=== PATIENT | female | born 1935 | race Caucasian/White ===

== ENCOUNTER 2025-01-15 13:21 | Inpatient (IN) ==
[2025-01-15 13:38] VITALS: BMI 25.2
--- NOTE | 2025-01-15 14:07 | EKG ---
Test Reason : sob Blood Pressure : */* mmHG Vent. Rate : 88 BPM Atrial Rate : 88 BPM P-R Int : 130 ms QRS Dur : 90 ms QT Int : 368 ms P-R-T Axes : 33 -31 49 degrees QTc Int : 445 ms Normal sinus rhythm Left axis deviation Abnormal ECG When compared with ECG of 20-DEC-2024 09:00, QRS axis shifted left Confirmed by Prosper Mayorga MD ([id number]) on 01/16/2025 7:18:12 AM Referred By: Confirmed By: Prosper Mayorga MD
[2025-01-15 14:09] LABS: MEAN PLATELET VOLUME 7.2 fL (7.4-11.0)
[2025-01-15 14:13] LABS: RED CELL DISTRIBUTION WIDTH 17.2 % (11.6-16.5)
--- NOTE | 2025-01-15 14:14 | DR.SOBA ---
HPI Time Seen Time Seen by Provider: 01/15/25 14:12 Primary Care Physician Primary Care Physician: Marilynn Montemayor NP Complaints Chief Complaint Doctors Comments: Patient complain of shortness of breath for about 2 days.He did have a arterioplasty done on her right leg on November. Chief Complaint:: Paient daughter states that patient O2 sat was in the 60s, patient had shortness of breath, confusion and weakness x2 days. Daughter states that she only checked patient O2 due to shorntess of breath, she states that the patient refused to come to the ER until today. COVID-19 Coronavirus risk:travel/contact w/high risk person: No Has patient experienced Coronavirus symptoms: No Source History Provided: Patient and Family Member Mode of Arrival Mode of Arrival: Wheelchair Timing Onset of Chief Complaint: 01/13/25 PMH PMH Past Medical History: Yes Past Medical History: Anxiety, Diabetes, Dyslipidemia, Hypertension and Hypothyroidism Past Medical History Comment: arrhythmia Past Surgical History: Yes Surgical History: Cholecystectomy and Joint Replacement Past Surgical History Comment: left hip replacement, artery in legs Family History History of Family Medical Conditions: Yes Family Medical History: Diabetes Mellitus, Cancer and Hypertension Social History Type of Tobacco Use: None Alcohol Use: None Do you use any recreational Drugs:: No Lives With: Spouse Lives Where: Home Travel Risk Coronavirus risk:travel/contact w/high risk person: No Has patient experienced Coronavirus symptoms: No Infectious screening Have you traveled outside the country in the last 6 months?: No Isolation: Standard ROS Review of Systems Constitutional: Other (shortness of breath) Eyes: No Symptoms Reported ENTM: No Symptoms Reported Respiratoy: Short of Breath Cardiovascular: No Symptoms Reported Gastrointestinal/Abdominal: No Symptoms Reported Genitourinary: No Symptoms Reported Neurological: No Symptoms Reported Musculoskeletal: No Symptoms Reported Integumentary: No Symptoms Reported Hematologic/Lymphatic: No Symptoms Reported Endocrine: No Symptoms Reported Psychiatric: No Symptoms Reported All Other Systems: Reviewed and Negative PE Vital Signs Vitals: Vital Signs Temperature 98.3 F Pulse Rate 83 Pulse Rate 89 Pulse Rate 82 Pulse Rate 82 Pulse Rate 80 Pulse Rate 80 Pulse Rate 80 Pulse Rate 81 Pulse Rate 82 Pulse Rate 82 Pulse Rate 81 Pulse Rate 80 Pulse Rate 81 Pulse Rate 81 Pulse Rate 82 Pulse Rate 81 Pulse Rate 86 Pulse Rate 85 Pulse Rate 87 Pulse Rate 89 Pulse Rate 91 Pulse Rate 88 Pulse Rate 95 Pulse Rate 100 Respiratory Rate 20 Blood Pressure 140/65 Blood Pressure 142/86 Blood Pressure 153/65 Blood Pressure 165/73 Blood Pressure 163/70 Blood Pressure 133/67 Blood Pressure 156/71 Blood Pressure 156/71 Blood Pressure 133/63 Blood Pressure 133/63 Blood Pressure 139/62 Blood Pressure 139/62 Blood Pressure 162/70 O2 Sat by Pulse Oximetry 98 O2 Sat by Pulse Oximetry 94 O2 Sat by Pulse Oximetry 95 O2 Sat by Pulse Oximetry 97 O2 Sat by Pulse Oximetry 100 O2 Sat by Pulse Oximetry 98 O2 Sat by Pulse Oximetry 100 O2 Sat by Pulse Oximetry 100 O2 Sat by Pulse Oximetry 99 O2 Sat by Pulse Oximetry 100 O2 Sat by Pulse Oximetry 100 O2 Sat by Pulse Oximetry 99 O2 Sat by Pulse Oximetry 96 O2 Sat by Pulse Oximetry 90 O2 Sat by Pulse Oximetry 92 O2 Sat by Pulse Oximetry 92 O2 Sat by Pulse Oximetry 87 O2 Sat by Pulse Oximetry 91 O2 Sat by Pulse Oximetry 91 O2 Sat by Pulse Oximetry 93 O2 Sat by Pulse Oximetry 93 O2 Sat by Pulse Oximetry 94 O2 Sat by Pulse Oximetry 92 O2 Sat by Pulse Oximetry 75 General Limitations: Physical Limitation (due to hypoxia) General Appearance: Alert and In Distress (moderate distress) Head Head Exam: Normal Inspection, Atraumatic and Normocephalic Eyes Eye exam: Normal Appearance, PERRL and EOMI ENT ENT Exam: Normal Exam and Normal Oropharynx Neck Neck Exam: Normal Inspection, Full ROM and Trachea Midline Chest Chest Inspection: Normal Inspection and Symmetric Chest Wall Rise Respiratory Respiratory Exam: Normal Lung Sounds Bilat Respiratory Exam: Bilateral: Clear to Auscultation Cardiovascular Cardiovascular Exam: Regular Rate Abdominal Exam Abdominal Exam: Normal Inspection Extremities Extremities Exam: Normal Inspection Back Back Exam: Normal Inspection Neurologic Neurological Exam: Alert, Oriented X3 and CN II-XII Intact Psychiatric Psychiatric Exam: Normal Affect Skin Skin Exam: Warm, Dry and Intact MDM Differential Diagnosis Differential Diagnosis: Pneumonia, Pneumothorax, Pulmonary embolism, Respiratory Insufficiency and URI COURSE Treatment Treatment: After patient was patient placed on oxygen she was relatively stable did okay not complaining of shortness of breath we did do the workup for PE pneumonia I we did do a D-dimer which was2.38 and we did a CTA of the chest that was negative for PE but it did show bilateral ground glass opacities. We did a chest x-ray that showed bilateral ground glass opacities today diagnosed as pneumonia.Patient did not have an elevated white count is a slightly elevated 10.3 the COVID respiratory panel was negative her BNP was 128 troponin was 10.1With this finding until bilateral opacities and hypoxia deemed that service patient to be admitted for pneumonia. This patient was given 1 g of Rocephin IV in the emergency department and was maintained on oxygen at 3 L/min to maintain O2 sat of 98%.This patient was discussed with Dr. Ferrer at 1755 and he is septic patient for admission.The patient family was told of the intent to admit and was agreeable to the admission. [facility] Labs Reviewed Laboratory Results Reviewed?: Yes 01/15/25 13:35 01/15/25 13:35 Laboratory: WBC 10.3 X10^3/uL (3.6-10.0) H 01/15/25 13:35 RBC 5.24 X10^6/uL (3.5-5.4) 01/15/25 13:35 Hgb 13.7 g/dL (12.0-16.0) 01/15/25 13:35 Hct 41.6 % (36.0-47.0) 01/15/25 13:35 MCV 79.4 fL (80.0-100.0) L 01/15/25 13:35 MCH 26.2 pg (27.0-34.0) L 01/15/25 13:35 MCHC 33.0 g/dL (33.0-35.0) 01/15/25 13:35 RDW 17.2 % (11.6-16.5) H 01/15/25 13:35 Plt Count 380 X10^3/uL (150.0-450.0) 01/15/25 13:35 MPV 7.2 fL (7.4-11.0) L 01/15/25 13:35 Neut % (Auto) 81.9 % (42.0-75.0) H 01/15/25 13:35 Lymph % (Auto) 10.2 % (21.0-51.0) L 01/15/25 13:35 [place] % (Auto) 6.2 % (0.0-13.0) 01/15/25 13:35 Eos % (Auto) 1.0 % (0.9-2.9) 01/15/25 13:35 Baso % (Auto) 0.7 % (0.2-1.0) 01/15/25 13:35 Neut # (Auto) 8.4 x10^3/uL (2.2-4.8) H 01/15/25 13:35 Lymph # (Auto) 1.0 X10^3/uL (1.3-2.9) L 01/15/25 13:35 [place] # (Auto) 0.6 x10^3/uL (0.3-0.8) 01/15/25 13:35 Eos # (Auto) 0.1 x10^3/uL (0.0-0.2) 01/15/25 13:35 Baso # (Auto) 0.1 X10^3/uL (0.0-0.1) 01/15/25 13:35 Absolute Nucleated RBC 0.7 /100WBC 01/15/25 13:35 D-Dimer 2.38 ug/ml (0.0-0.57) H 01/15/25 13:35 Sodium 139 mmol/L (136-145) 01/15/25 13:35 Corrected Sodium 139 mmol/L (136-145) 01/15/25 13:35 Potassium 3.8 mmol/L (3.5-5.1) 01/15/25 13:35 Chloride 100 mmol/L (98-107) 01/15/25 13:35 Carbon Dioxide 28.7 mmol/L (21-32) 01/15/25 13:35 BUN 23 mg/dL (7-18) H 01/15/25 13:35 Creatinine 0.89 mg/dL (0.55-1.02) 01/15/25 13:35 Est GFR (MDRD) Af Amer > 60 (>60) 01/15/25 13:35 Est GFR (MDRD) Non-Af > 60 (>60) 01/15/25 13:35 Glucose 113 mg/dL (65-99) H 01/15/25 13:35 Lactic Acid 0.9 mmol/L (0.4-2.0) 01/15/25 16:00 Calcium 11.6 mg/dL (8.5-10.1) H 01/15/25 13:35 Corrected Calcium 12.6 mg/dL (8.5-10.1) H 01/15/25 13:35 Total Bilirubin 0.90 mg/dL (0.2-1.0) 01/15/25 13:35 AST 42 Units/L (15-37) H 01/15/25 13:35 ALT 24 Units/L (12-78) 01/15/25 13:35 Alkaline Phosphatase 113 Units/L (46-116) 01/15/25 13:35 Creatine Kinase 27 Units/L (26-192) 01/15/25 13:35 Troponin I High Sens 10.1 ng/L (4.0-60.0) 01/15/25 13:35 B-Natriuretic Peptide 128 pg/mL (0-79) H 01/15/25 13:35 Total Protein 8.0 g/dL (6.4-8.2) 01/15/25 13:35 Albumin 2.7 g/dL (3.4-5.0) L 01/15/25 13:35 Globulin 5.3 g/dL (2.5-4.5) H 01/15/25 13:35 Albumin/Globulin Ratio 0.5 Ratio (1.1-2.1) L 01/15/25 13:35 SARS-CoV-2 (PCR) Negative (NEGATIVE) 01/15/25 13:46 Influenza Type A (PCR) Negative (NEGATIVE) 01/15/25 13:46 Influenza Type B (PCR) Negative (NEGATIVE) 01/15/25 13:46 RSV (PCR) Negative (NEGATIVE) 01/15/25 13:46 Opioid Opioid Risk Tool Age (Bobby box if 16-45): No History of Preadolescent Sexual Abuse: No Total: 0 Total Score Risk Category: Low Risk Copyright: uT predicting aberrant behaviors Discharge Plan Diagnosis Discharge Problem: Pneumonia, Hypoxia Discharge Plan Patient Disposition: 09 ADMITTED INPATIENT Condition: Stable Orders to Discharge Patient Discharge Orders: Transfer (Routine); Ordered 01/15/25 Ordered By: Zain Cole
[2025-01-15 14:20] LABS: COR CA(FOR HYPOALB) 12.6 mg/dL (8.5-10.1); COR NA(FOR HYPERGLY) 139 mmol/L (136-145); CREATININE 0.89 mg/dL (0.55-1.02); eGFR NON BLACK RACES > 60 (>60)
--- NOTE | 2025-01-15 15:31 | CT ---
EXAM: CTA, CHEST HISTORY: Shortness of breath, elevated d-dimer, sob, low 02; sob COMPARISON: Frontal chest radiograph same day 2:01 p[address] TECHNIQUE: CT angiography of the chest with intravenous contrast. Three-dimensional reconstructions and/or MIPS images were produced and reviewed. FINDINGS: Bolus timing is adequate. Negative for pulmonary embolus. Mediastinal lymphadenopathy is present. No pericardial effusion. There is a large hiatal hernia present. Limited visualization of the upper abdomen demonstrates clips from prior cholecystectomy. Adreniform fullness on the left is nonspecific and could be due to adenomatous change. Atrophy of the pancreas. No acute upper abdominal process. Lung windows demonstrate severe bilateral ground-glass airspace opacities with underlying bronchiectasis present bilaterally. No suspicious bony lesion. IMPRESSION: Negative for pulmonary embolus. Severe bilateral ground-glass airspace opacities are superimposed upon chronic appearing underlying interstitial lung disease. Pneumonia, pulmonary edema, pneumonitis would be differential considerations. All CT scans at this facility use dose modulation, iterative reconstruction, and/or weight based dosing when appropriate to reduce radiation dose to as low as reasonably achievable. THIS IS AN ELECTRONICALLY VERIFIED FINAL REPORT 01/15/2025 3:28 PM - Electronically signed by Kai Ahuja MD
--- NOTE | 2025-01-15 15:49 | RAD ---
EXAM: CHEST, 1 VIEW HISTORY: SOB; COMPARISON: 12/20/2024 r.br.[email or web address] stable. Scattered bilateral airspace opacities. No pneumothorax or effusion. No acute osseous abnormality. IMPRESSION: Bilateral airspace opacities concerning for pneumonia. Recommend follow-up to resolution. THIS IS AN ELECTRONICALLY VERIFIED FINAL REPORT 01/15/2025 3:46 PM - Electronically signed by Zechariah Liang MD
[2025-01-15] MEDS: ROCEPHIN VIAL 1 GRAM IVP ONE (18:02)
[2025-01-15] MEDS: ROCEPHIN VIAL 1 GRAM 1 G in NS 100 ML IV 100 ML IV SCH (18:20)
[2025-01-15] MEDS: PULMICORT NEB TX 0.5 MG NEB SCH (20:45)
[2025-01-15] MEDS ORDERED: DUONEB 0.5 MG/3 MG (3 mL) NEB SCH (20:45)
[2025-01-15] MEDS: DUONEB 0.5 MG/3 MG (3 mL) NEB SCH (20:45)
[2025-01-15] MEDS: TYLENOL 325 MG TAB PO PRN (22:11)
[2025-01-15] MEDS: XARELTO PO SCH (22:12)
[2025-01-16 05:52] LABS: MEAN PLATELET VOLUME 7.0 fL (7.4-11.0); RED CELL DISTRIBUTION WIDTH 17.6 % (11.6-16.5)
[2025-01-16 06:13] LABS: COR CA(FOR HYPOALB) 12.6 mg/dL (8.5-10.1); CREATININE 0.91 mg/dL (0.55-1.02); eGFR NON BLACK RACES > 60 (>60)
[2025-01-16] MEDS: CONSULT PHARMACY - POTASSIUM & MAGNESIUM XX SCH (07:32)
[2025-01-16] MEDS: OMNIPAQUE 350 mg/mL 100 mL BTL 100 ML ONE (07:32)
--- NOTE | 2025-01-16 08:25 | DR.H&P ---
H&P History & Physical for Day of: H&P Date: 01/15/25 Chief Complaint Chief Complaint: sob History of Present Illness History of Present Illness: Patient daughter states that patient O2 sat was in the 60s, patient had shortness of breath, confusion and weakness x2 days. Daughter states that she only checked patient O2 due to shortness of breath, she states that the patient refused to come to the ER until today Past Medical History Past Medical History: Anxiety, Diabetes, Dyslipidemia, Hypertension and Hypothyroidism Past Surgical History Surgical History: Cholecystectomy and Joint Replacement Family History Family Medical History: Diabetes Mellitus, Cancer and Hypertension Social History Does patient currently use any type of tobacco product: No Have you used tobacco products in the last 12 months: No Type of Tobacco Use: None Does any household member use tobacco: No Alcohol Use: None Drug Use: None Medications Home Medications: Home Medications Medication Instructions Recorded Confirmed Type triamterene 37.5 1 cap PO DAILY 06/12/1512/27 History mg-hydrochlorothiazide 25 mg capsule dapagliflozin propanediol 10 mg 10 mg PO QDAY 01/26/24 01/15/25 History tablet (Farxiga) levothyroxine 88 mcg tablet 88 mcg PO QDAY 01/26/24 History rosuvastatin 10 mg tablet 10 mg PO QDAY 01/26/2401/15 History aspirin 81 mg capsule 81 mg PO QDAY 01/15/2501/15 History cholecalciferol (vitamin D3) 125 125 mcg PO QDAY 01/1501/15/25 History mcg (5,000 unit) tablet (Vitamin D3) insulin degludec 100 unit/mL 10 unit subcut QDAY 01/1501/15/25 History subcutaneous solution (Tresiba U-100 Insulin) multivitamin 1 tab PO QAM 01/15/25 History omeprazole 20 mg capsule,delayed 20 mg PO QDAY 5 01/15/25 History release rivaroxaban 2.5 mg tablet 2.5 mg PO BID 01/15/2501/15 History tramadol 50 mg tablet 25 - 50 mg PO Q8-10H PRN 01/15/25 History Allergies Allergies Allergy/AdvReac Type Severity Reaction Status Date / Time Sulfa (Sulfonamide AdvReac Verified 01/15/25 13:38 Antibiotics) (SULFA) Labs 01/16/25 05:26 01/16/25 05:26 Labs: Laboratory WBC 7.9 X10^3/uL (3.6-10.0) 01/16/25 05:26 RBC 4.66 X10^6/uL (3.5-5.4) 01/16/25 05:26 Hgb 12.2 g/dL (12.0-16.0) 01/16/25 05:26 Hct 36.9 % (36.0-47.0) 01/16/25 05:26 MCV 79.2 fL (80.0-100.0) L 01/16/25 05:26 MCH 26.2 pg (27.0-34.0) L 01/16/25 05:26 MCHC 33.1 g/dL (33.0-35.0) 01/16/25 05:26 RDW 17.6 % (11.6-16.5) H 01/16/25 05:26 Plt Count 322 X10^3/uL (150.0-450.0) 01/16/25 05:26 MPV 7.0 fL (7.4-11.0) L 01/16/25 05:26 Neut % (Auto) 79.5 % (42.0-75.0) H 01/16/25 05:26 Lymph % (Auto) 9.2 % (21.0-51.0) L 01/16/25 05:26 [place] % (Auto) 8.6 % (0.0-13.0) 01/16/25 05:26 Eos % (Auto) 2.3 % (0.9-2.9) 01/16/25 05:26 Baso % (Auto) 0.4 % (0.2-1.0) 01/16/25 05:26 Neut # (Auto) 6.2 x10^3/uL (2.2-4.8) H 01/16/25 05:26 Lymph # (Auto) 0.7 X10^3/uL (1.3-2.9) L 01/16/25 05:26 [place] # (Auto) 0.7 x10^3/uL (0.3-0.8) 01/16/25 05:26 Eos # (Auto) 0.2 x10^3/uL (0.0-0.2) 01/16/25 05:26 Baso # (Auto) 0.0 X10^3/uL (0.0-0.1) 01/16/25 05:26 Absolute Nucleated RBC 0.2 /100WBC 01/16/25 05:26 D-Dimer 2.38 ug/ml (0.0-0.57) H 01/15/25 13:35 Sodium 139 mmol/L (136-145) 01/16/25 05:26 Corrected Sodium TNP 01/16/25 05:26 Potassium 3.6 mmol/L (3.5-5.1) 01/16/25 05:26 Chloride 101 mmol/L (98-107) 01/16/25 05:26 Carbon Dioxide 30.4 mmol/L (21-32) 01/16/25 05:26 BUN 26 mg/dL (7-18) H 01/16/25 05:26 Creatinine 0.91 mg/dL (0.55-1.02) 01/16/25 05:26 Est GFR (MDRD) Af Amer > 60 (>60) 01/16/25 05:26 Est GFR (MDRD) Non-Af > 60 (>60) 01/16/25 05:26 Glucose 106 mg/dL (65-99) H 01/16/25 05:26 POC Glucose (mg/dL) 118 mg/dL (65-99) H 01/15/25 20:41 Lactic Acid 0.9 mmol/L (0.4-2.0) 01/15/25 16:00 Calcium 11.2 mg/dL (8.5-10.1) H 01/16/25 05:26 Corrected Calcium 12.6 mg/dL (8.5-10.1) H 01/16/25 05:26 Magnesium 1.6 mg/dL (2.0-2.9) L 01/15/25 13:35 Total Bilirubin 0.60 mg/dL (0.2-1.0) 01/16/25 05:26 AST 30 Units/L (15-37) 01/16/25 05:26 ALT 21 Units/L (12-78) 01/16/25 05:26 Alkaline Phosphatase 93 Units/L (46-116) 01/16/25 05:26 Creatine Kinase 27 Units/L (26-192) 01/15/25 13:35 Troponin I High Sens 10.1 ng/L (4.0-60.0) 01/15/25 13:35 B-Natriuretic Peptide 128 pg/mL (0-79) H 01/15/25 13:35 Total Protein 6.9 g/dL (6.4-8.2) 01/16/25 05:26 Albumin 2.2 g/dL (3.4-5.0) L 01/16/25 05:26 Globulin 4.7 g/dL (2.5-4.5) H 01/16/25 05:26 Albumin/Globulin Ratio 0.5 Ratio (1.1-2.1) L 01/16/25 05:26 SARS-CoV-2 (PCR) Negative (NEGATIVE) 01/15/25 13:46 Influenza Type A (PCR) Negative (NEGATIVE) 01/15/25 13:46 Influenza Type B (PCR) Negative (NEGATIVE) 01/15/25 13:46 RSV (PCR) Negative (NEGATIVE) 01/15/25 13:46 Review of Systems Constitutional: Weakness Eyes: No Symptoms Reported ENT: No Symptoms Reported Respiratory: Shortness of Breath Cardiovascular: No Symptoms Reported Gastrointestinal: No Symptoms Reported Genitourinary: No Symptoms Reported Musculoskeletal: No Symptoms Reported Skin: No Symptoms Reported Neurological: Weakness Oriented: Normal Eyes: Normal Ear: Normal Nose: Normal Throat: Dry Respiratory: Diminished Throughout Cardiovascular: Normal Auscultation: Bowel Sounds: Normal Palpation: Normal Skin: Decreased [place] Musculoskeletal: Motor Deficit Psychiatric: Anxiety Mood Description: Anxious Speech Pattern: Clear and Appropriate Assessment/Plan (1) Hypoxia: Status: Acute Plan: admit, resp therapy supplemenal o2 cta negative for PE, obtained on admission\ iv atbx, bp and cardiac monitoring (2) Pneumonia: Status: Acute
[2025-01-16] MEDS ORDERED: PATIENT'S HOME MEDICATION (Multivitamin Tablet) PO SCH (09:00)
[2025-01-16] MEDS ORDERED: PATIENT'S HOME MEDICATION (Dapagliflozin Propanediol [Farxiga] 10 mg tablet) PO SCH (09:00)
[2025-01-16] MEDS ORDERED: PATIENT'S HOME MEDICATION (Aspirin 81 mg Capsule) PO SCH (09:00)
[2025-01-16] MEDS: VITAMIN D3 125 mcg (5,000 UNITS) PO SCH (09:19)
[2025-01-16] MEDS: ASPIRIN EC 81 MG PO SCH (09:19)
[2025-01-16] MEDS: CRESTOR TAB 10 MG PO SCH (09:19)
[2025-01-16] MEDS: TAB-A-VITE PO SCH (09:20)
[2025-01-16] MEDS: MAG-OX TAB PO SCH (09:20)
[2025-01-16] MEDS: ZESTRIL TAB 5 MG PO SCH (09:20)
[2025-01-16] MEDS: K-DUR TAB 20 MEQ PO SCH (09:20)
[2025-01-16] MEDS: TRESIBA U-100 INSULIN SC SCH (09:28)
[2025-01-16] MEDS: TRIAMTERENE HYDROCHLOROTHIAZID PO SCH (09:59)
[2025-01-16] MEDS: MAXZIDE 37.5/25 MG PO SCH (10:08)
[2025-01-16] MEDS: FARXIGA PO SCH (10:09)
[2025-01-16] MEDS: NS 250 ML IV 250 ML IV ONE (10:09)
[2025-01-16] MEDS: ZITHROMAX INJ 500 MG VIAL 500 MG in NS 250 ML IV 250 ML IV SCH (10:09)
--- NOTE | 2025-01-16 10:13 | PCM.PROG ---
Progress Note Progress Note for Day of Date of Exam: 01/16/25 Subjective Subjective: Patient seen at bedside, no acute events overnight. She is feeling better today. She is admitted for pneumonia. She remains on 2L NC. She reports some cough, poor appetite. She is on IV Rocephin. AIT pending. Labs/imaging reviewed: -WBC 7.9 Hgb 12.2 K 3.6 Cr 0.91 Corrected Ca 12.6 -CTA reviewed Plan: Wean O2 as tolerated. Repeat CXR. Continue bronchodilators and IS. Continue IV Rocephin, add azithromycin. Follow AIT results. Continue home medications. Add Ensure. Replace electrolytes as per protocol. PT/OT as tolerated. Family member states patient has had chronic hypercalcemia. Monitor AM labs/imaging. Past Medical Family Social History Allergies: Allergies Sulfa (Sulfonamide Antibiotics) (SULFA) Adverse Reaction (Verified 01/15/25 13:38) "itching" Vital Signs and I&O's Vital Signs: Vital Signs Temperature 97.9 F Pulse Rate [Left Radial] 77 Respiratory Rate 18 Blood Pressure [Right Arm] 159/75 O2 Sat by Pulse Oximetry 93 O2 Sat by Pulse Oximetry 94 Intake and Output: Intake & Output 01/13/25 01/14/25 01/15/25 01/16/25 23:59 23:59 23:59 23:59 Intake Total Balance Physical Exam Oriented: Normal Eyes: Normal Ear: Normal Nose: Normal Throat: Normal Respiratory: Generalized, Rales and Rhonchi Cardiovascular: Normal Auscultation: Bowel Sounds: Normal Palpation: Normal Skin: Decreased [place] Musculoskeletal: Motor Deficit Psychiatric: Normal Mood Description: Calm Affect: Normal Speech Pattern: Clear and Appropriate Laboratory and Diagnostics 01/16/25 05:26 01/16/25 05:26 Labs: Laboratory WBC 7.9 X10^3/uL (3.6-10.0) 01/16/25 05: RBC 4.66 X10^6/uL (3.5-5.4) 01/16/25 05:26 Hgb 12.2 g/dL (12.0-16.0) 01/16/25 05:26 Hct 36.9 % (36.0-47.0) 01/16/25 05:26 MCV 79.2 fL (80.0-100.0) L 01/16/25 05:26 MCH 26.2 pg (27.0-34.0) L 01/16/25 05:26 MCHC 33.1 g/dL (33.0-35.0) 01/16/25 05:26 RDW 17.6 % (11.6-16.5) H 01/16/25 05:26 Plt Count 322 X10^3/uL (150.0-450.0) 01/16/25 05:26 MPV 7.0 fL (7.4-11.0) L 01/16/25 05:26 Neut % (Auto) 79.5 % (42.0-75.0) H 01/16/25 05:26 Lymph % (Auto) 9.2 % (21.0-51.0) L 01/16/25 05:26 [place] % (Auto) 8.6 % (0.0-13.0) 01/16/25 05:26 Eos % (Auto) 2.3 % (0.9-2.9) 01/16/25 05:26 Baso % (Auto) 0.4 % (0.2-1.0) 01/16/25 05:26 Neut # (Auto) 6.2 x10^3/uL (2.2-4.8) H 01/16/25 05:26 Lymph # (Auto) 0.7 X10^3/uL (1.3-2.9) L 01/16/25 05:26 [place] # (Auto) 0.7 x10^3/uL (0.3-0.8) 01/16/25 05:26 Eos # (Auto) 0.2 x10^3/uL (0.0-0.2) 01/16/25 05:26 Baso # (Auto) 0.0 X10^3/uL (0.0-0.1) 01/16/25 05:26 Absolute Nucleated RBC 0.2 /100WBC 01/16/25 05:26 D-Dimer 2.38 ug/ml (0.0-0.57) H 01/15/25 13:35 Sodium 139 mmol/L (136-145) 01/16/25 05:26 Corrected Sodium TNP 01/16/25 05:26 Potassium 3.6 mmol/L (3.5-5.1) 01/16/25 05:26 Chloride 101 mmol/L (98-107) 01/16/25 05:26 Carbon Dioxide 30.4 mmol/L (21-32) 01/16/25 05:26 BUN 26 mg/dL (7-18) H 01/16/25 05:26 Creatinine 0.91 mg/dL (0.55-1.02) 01/16/25 05:26 Est GFR (MDRD) Af Amer > 60 (>60) 01/16/25 05:26 Est GFR (MDRD) Non-Af > 60 (>60) 01/16/25 05:26 Glucose 106 mg/dL (65-99) H 01/16/25 05:26 POC Glucose (mg/dL) 118 mg/dL (65-99) H 01/15/25 20:41 Lactic Acid 0.9 mmol/L (0.4-2.0) 01/15/25 16:00 Calcium 11.2 mg/dL (8.5-10.1) H 01/16/25 05:26 Corrected Calcium 12.6 mg/dL (8.5-10.1) H 01/16/25 05:26 Magnesium 1.6 mg/dL (2.0-2.9) L 01/15/25 13:35 Total Bilirubin 0.60 mg/dL (0.2-1.0) 01/16/25 05:26 AST 30 Units/L (15-37) 01/16/25 05:26 ALT 21 Units/L (12-78) 01/16/25 05:26 Alkaline Phosphatase 93 Units/L (46-116) 01/16/25 05:26 Creatine Kinase 27 Units/L (26-192) 01/15/25 13:35 Troponin I High Sens 10.1 ng/L (4.0-60.0) 01/15/25 13:35 B-Natriuretic Peptide 128 pg/mL (0-79) H 01/15/25 13:35 Total Protein 6.9 g/dL (6.4-8.2) 01/16/25 05:26 Albumin 2.2 g/dL (3.4-5.0) L 01/16/25 05:26 Globulin 4.7 g/dL (2.5-4.5) H 01/16/25 05:26 Albumin/Globulin Ratio 0.5 Ratio (1.1-2.1) L 01/16/25 05:26 SARS-CoV-2 (PCR) Negative (NEGATIVE) 01/15/25 13:46 Influenza Type A (PCR) Negative (NEGATIVE) 01/15/25 13:46 Influenza Type B (PCR) Negative (NEGATIVE) 01/15/25 13:46 RSV (PCR) Negative (NEGATIVE) 01/15/25 13:46 Plan (1) Hypoxia: Status: Acute (2) Pneumonia: Status: Acute Qualifiers: Laterality: bilateral Lung location: unspecified part of lung P neumonia type: due to unspecified organism Qualified Code(s): J18.9 - Pneumonia, unspecified organism (3) HTN (hypertension): Status: Chronic Qualifiers: Hypertension type: primary hypertension Qualified Code(s): I10 - Essential (primary) hypertension (4) Hypercalcemia: Status: Chronic (5) Generalized weakness: Status: Acute (6) Type 2 diabetes mellitus: Status: Chronic Qualifiers: Diabetes mellitus complication detail: with other circulatory complications Diabetes mellitus complication status: with circulatory complication 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
[2025-01-16] MEDS: BUTT CREAM (COMPOUND) TOP PRN (12:17)
[2025-01-16] MEDS: BUTT CREAM (COMPOUND) ONE (14:02)
--- NOTE | 2025-01-17 05:47 | RAD ---
PROCEDURE: Chest X-ray 1 View. HISTORY: Pneumonia. TECHNIQUE: AP view. COMPARISON: 01/15/2025. TECHNICAL QUALITY: Satisfactory. FINDINGS: Normal size heart. Mediastinum and hilar regions show no masses or lymphadenopathy. Normal central vascularity. Continued consolidation bilaterally at the lung bases. Some mild improvement right upper lobe. No pleural fluid. No acute bony abnormality. IMPRESSION: Continued bilateral pneumonia as described above. THIS IS AN ELECTRONICALLY VERIFIED FINAL REPORT 01/17/2025 5:44 AM - Electronically signed by Octavio Kebede MD
[2025-01-17 05:53] LABS: MEAN PLATELET VOLUME 7.1 fL (7.4-11.0); RED CELL DISTRIBUTION WIDTH 17.6 % (11.6-16.5)
[2025-01-17 06:09] LABS: COR CA(FOR HYPOALB) 12.1 mg/dL (8.5-10.1); COR NA(FOR HYPERGLY) 139.0 mmol/L (136-145); CREATININE 1.11 mg/dL (0.55-1.02); eGFR NON BLACK RACES 49.0 (>60)
[2025-01-17] MEDS ORDERED: CONSULT PHARMACY - POTASSIUM & MAGNESIUM XX SCH (07:00)
[2025-01-17 08:38] LABS: BLOOD/HEMOGLOBIN,URINE NEGATIVE (NEGATIVE); LEUKOCYTE ESTERASE ,URINE 1+ (NEGATIVE); NITRITES,URINE NEGATIVE (NEGATIVE)
[2025-01-17 08:39] LABS: APPEARANCE,URINE CLEAR (CLEAR)
[2025-01-17 08:45] LABS: SQUAMOUS EPITHELIAL CELL,UR FEW /HPF (NEGATIVE)
[2025-01-17 08:47] LABS: YEAST,URINE FEW /HPF (NEGATIVE)
[2025-01-17 09:30] LABS: ABG ALLEN TEST POS; ABG BASE EXCESS 3.3 mmol/L (-2.0-2.0); ABG HCO3 26.8 mmol/L (22-26); ABG OXYGEN SATURATION 63.0 % (90-100); ABG PCO2 36.0 mmHg (35.0-45.0); ABG PH 7.480 (7.35-7.45); ABG PO2 < 37.0 mmHg (80.0-100.0)
[2025-01-17] MEDS: MAG-OX TAB PO SCH (09:30)
[2025-01-17] MEDS: K-DUR TAB 20 MEQ PO ONE (09:30)
[2025-01-17] MEDS: ZOSYN VIAL 3.375 GRAMS 3.375 G in NS 100 ML IV 100 ML IV SCH (09:55)
--- NOTE | 2025-01-17 10:21 | RAD ---
EXAMINATION: CHEST, 1 VIEW HISTORY: PNEUMONIA, WORSENING HYPOXIA; . COMPARISON STUDY: 01/16/2025 TECHNIQUE: One view FINDINGS: Heart size is normal for technique. Bilateral opacities are unchanged. No pneumothorax, new infiltrate or other change noted. Poor inspiration. Patient is slightly rotated to the right. IMPRESSION: No change in bilateral opacities. Follow-up recommended THIS IS AN ELECTRONICALLY VERIFIED FINAL REPORT 01/17/2025 10:18 AM - Electronically signed by Dano Summers MD
[2025-01-17 10:27] LABS: BLOOD/HEMOGLOBIN,URINE 1+ (NEGATIVE); LEUKOCYTE ESTERASE ,URINE 1+ (NEGATIVE); NITRITES,URINE NEGATIVE (NEGATIVE)
[2025-01-17 10:30] LABS: APPEARANCE,URINE CLEAR (CLEAR)
[2025-01-17 10:39] LABS: SQUAMOUS EPITHELIAL CELL,UR RARE /HPF (NEGATIVE)
--- NOTE | 2025-01-17 10:41 | PCM.PROG ---
Progress Note Progress Note for Day of Date of Exam: 01/17/25 Subjective Subjective: Patient seen at bedside, she was noted to have low O2 sats in the 80s earlier this morning. She was placed on oxi mask. She is currently on 8 L oxygen. Her saturations drop rapidly with exertion. She does report some cough. Chest x-ray yesterday showed similar bilateral pneumonia. She has been on Rocephin and azithromycin. She has been afebrile, normal WBC. cPatient did have COVID infection couple weeks ago. CT chest done on admission did show ground glass opacities and interstitial lung disease. She has no history of prior lung disease. Labs/imaging reviewed: - WBC 8.6 hemoglobin 11.3 potassium 3.7 creatinine 1.11 calcium 12.1 - Chest x-ray 01/16/2025 reviewed - AIT pending - Blood cultures pending Plan: Wean O2 as tolerated. Order ABG, chest x-ray. Stop Rocephin, switch to Zosyn. Continue azithromycin. Continue bronchodilators. Follow pending cultures. Add Solu-Medrol. Continue home medications as tolerated. Replace electrolytes as per protocol. Repeat BNP. Place gomez. Monitor a.m. labs and imaging. Time spent for clinical assessment, reviewing labs and imaging, physical exam, decision making and documentation greater than 45 minutes. Past Medical Family Social History Allergies: Allergies Sulfa (Sulfonamide Antibiotics) (SULFA) Adverse Reaction (Verified 01/15/25 13:38) "itching" Vital Signs and I&O's Vital Signs: Vital Signs Temperature 97.6 F Pulse Rate [Left Radial] 89 Pulse Rate 90 Respiratory Rate 16 Blood Pressure [Right Arm] 156/70 O2 Sat by Pulse Oximetry 90 O2 Sat by Pulse Oximetry 92 Intake and Output: Intake & Output 01/14/25 01/15/25 01/16/25 01/17/25 23:59 23:59 23:59 23:59 Intake Total 486 / 486 60 / 60 Output Total 100 / 100 Balance 386 / 386 60 / 60 Physical Exam Oriented: Normal Eyes: Normal Ear: Normal Nose: Normal Throat: Normal Respiratory: Generalized, Rales and Rhonchi Cardiovascular: Normal Auscultation: Bowel Sounds: Normal Palpation: Normal Tenderness: Normal Skin: Decreased Turgur Musculoskeletal: Motor Deficit Psychiatric: Normal Mood Description: Calm Affect: Normal Speech Pattern: Clear and Appropriate Laboratory and Diagnostics 01/17/25 05:34 01/17/25 05:34 Labs: 01/15/25 16:15 Blood Blood Culture - Preliminary 01/15/25 16:00 Blood Blood Culture - Preliminary Laboratory WBC 8.6 X10^3/uL (3.6-10.0) 01/17/25 05:34 RBC 4.26 X10^6/uL (3.5-5.4) 01/17/25 05:34 Hgb 11.3 g/dL (12.0-16.0) L 01/17/25 05:34 Hct 33.4 % (36.0-47.0) L 01/17/25 05:34 MCV 78.4 fL (80.0-100.0) L 01/17/25 05:34 MCH 26.5 pg (27.0-34.0) L 01/17/25 05:34 MCHC 33.9 g/dL (33.0-35.0) 01/17/25 05:34 RDW 17.6 % (11.6-16.5) H 01/17/25 05:34 Plt Count 321 X10^3/uL (150.0-450.0) 01/17/25 05:34 MPV 7.1 fL (7.4-11.0) L 01/17/25 05:34 Neut % (Auto) 82.7 % (42.0-75.0) H 01/17/25 05:34 Lymph % (Auto) 8.1 % (21.0-51.0) L 01/17/25 05:34 [place] % (Auto) 7.1 % (0.0-13.0) 01/17/25 05:34 Eos % (Auto) 1.9 % (0.9-2.9) 01/17/25 05:34 Baso % (Auto) 0.2 % (0.2-1.0) 01/17/25 05:34 Neut # (Auto) 7.1 x10^3/uL (2.2-4.8) H 01/17/25 05:34 Lymph # (Auto) 0.7 X10^3/uL (1.3-2.9) L 01/17/25 05:34 [place] # (Auto) 0.6 x10^3/uL (0.3-0.8) 01/17/25 05:34 Eos # (Auto) 0.2 x10^3/uL (0.0-0.2) 01/17/25 05:34 Baso # (Auto) 0.0 X10^3/uL (0.0-0.1) 01/17/25 05:34 Absolute Nucleated RBC 0.1 /100WBC 01/17/25 05:34 D-Dimer 2.38 ug/ml (0.0-0.57) H 01/15/25 13:35 Sample Site Rrad 01/17/25 09:25 ABG pH 7.480 (7.35-7.45) H 01/17/25 09:25 ABG pCO2 36.0 mmHg (35.0-45.0) 01/17/25 09:25 ABG pO2 < 37.0 mmHg (80.0-100.0) L* 01/17/25 09:25 ABG HCO3 26.8 mmol/L (22-26) H 01/17/25 09:25 ABG O2 Saturation 63.0 % (90-100) L* 01/17/25 09:25 ABG Base Excess 3.3 mmol/L (-2.0-2.0) H 01/17/25 09:25 Smooth Test Pos 01/17/25 09:25 A-a Gradient 153.0 mmHg 01/17/25 09:25 FiO2 32.0 01/17/25 09:25 Blood Gas Comments Stephanie well ms/eb 01/17/25 09:25 Sodium 138 mmol/L (136-145) 01/17/25 05:34 Corrected Sodium 139 mmol/L (136-145) 01/17/25 05:34 Potassium 3.7 mmol/L (3.5-5.1) 01/17/25 05:34 Chloride 103 mmol/L (98-107) 01/17/25 05:34 Carbon Dioxide 27.0 mmol/L (21-32) 01/17/25 05:34 BUN 30 mg/dL (7-18) H 01/17/25 05:34 Creatinine 1.11 mg/dL (0.55-1.02) H 01/17/25 05:34 Est GFR (MDRD) Af Amer 60 (>60) 01/17/25 05:34 Est GFR (MDRD) Non-Af 49 (>60) L 01/17/25 05:34 Glucose 140 mg/dL (65-99) H 01/17/25 05:34 POC Glucose (mg/dL) 139 mg/dL (65-99) H 01/17/25 05:19 Lactic Acid 0.9 mmol/L (0.4-2.0) 01/15/25 16:00 Calcium 10.5 mg/dL (8.5-10.1) H 01/17/25 05:34 Corrected Calcium 12.1 mg/dL (8.5-10.1) H 01/17/25 05:34 Magnesium 1.8 mg/dL (2.0-2.9) L 01/17/25 05:34 Total Bilirubin 0.70 mg/dL (0.2-1.0) 01/17/25 05:34 AST 41 Units/L (15-37) H 01/17/25 05:34 ALT 29 Units/L (12-78) 01/17/25 05:34 Alkaline Phosphatase 103 Units/L (46-116) 01/17/25 05:34 Creatine Kinase 27 Units/L (26-192) 01/15/25 13:35 Troponin I High Sens 10.1 ng/L (4.0-60.0) 01/15/25 13:35 B-Natriuretic Peptide 58.9 pg/mL (0-79) 01/17/25 05:34 Total Protein 6.2 g/dL (6.4-8.2) L 01/17/25 05:34 Albumin 2.0 g/dL (3.4-5.0) L 01/17/25 05:34 Globulin 4.2 g/dL (2.5-4.5) 01/17/25 05:34 Albumin/Globulin Ratio 0.5 Ratio (1.1-2.1) L 01/17/25 05:34 Specimen Type Clean catch urine 01/17/25 08:20 Urine Color Yellow (YELLOW) 01/17/25 08:20 Urine Appearance Clear (CLEAR) 01/17/25 08:20 Urine pH 5.0 (5.0 - 8.0) 01/17/25 08:20 Ur Specific [place] 1.025 (1.000-1.030) 01/17/25 08:20 Urine Protein 2+ (NEGATIVE) 01/17/25 08:20 Urine Glucose (UA) 4+ (NEGATIVE) 01/17/25 08:20 Urine Ketones Negative (NEGATIVE) 01/17/25 08:20 Urine Blood Negative (NEGATIVE) 01/17/25 08:20 Urine Nitrite Negative (NEGATIVE) 01/17/25 08:20 Urine Bilirubin Negative (NEGATIVE) 01/17/25 08:20 Urine Urobilinogen Normal (NORMAL) 01/17/25 08:20 Ur Leukocyte Esterase 1+ (NEGATIVE) 01/17/25 08:20 Urine RBC 0-2 /HPF (0-3) 01/17/25 08:20 Urine WBC 3-5 /HPF (0-5) 01/17/25 08:20 Ur Squamous Epith Cells Few /HPF (NEGATIVE) 01/17/25 08:20 Urine Bacteria Negative /HPF (NEGATIVE) 01/17/25 08:20 Urine Yeast Few /HPF (NEGATIVE) 01/17/25 08:20 Ur Culture Indicated? No/not indicated 01/17/25 08:20 SARS-CoV-2 (PCR) Negative (NEGATIVE) 01/15/25 13:46 Influenza Type A (PCR) Negative (NEGATIVE) 01/15/25 13:46 Influenza Type B (PCR) Negative (NEGATIVE) 01/15/25 13:46 RSV (PCR) Negative (NEGATIVE) 01/15/25 13:46 Plan (1) Acute respiratory failure: Status: Acute Qualifiers: Respiratory failure complication: hypoxia Qualified Code(s): J96.01 - Acute respiratory failure with hypoxia (2) Hypoxia: Status: Acute (3) Pneumonia: Status: Acute Qualifiers: Laterality: bilateral Lung location: unspecified part of lung P neumonia type: due to unspecified organism Qualified Code(s): J18.9 - Pneumonia, unspecified organism (4) HTN (hypertension): Status: Chronic Qualifiers: Hypertension type: primary hypertension Qualified Code(s): I10 - Essential (primary) hypertension (5) Hypercalcemia: Status: Chronic (6) Generalized weakness: Status: Acute (7) Type 2 diabetes mellitus: Status: Chronic Qualifiers: Diabetes mellitus complication detail: with other circulatory complications Diabetes mellitus complication status: with circulatory complication Diabetes mellitus long term care social worker insulin use: with long term care social worker use Q ualified Code(s): E11.59 - Type 2 diabetes mellitus with other circulatory complications; Z79.4 - jail (current) use of insulin (8) Interstitial lung disease: Status: Chronic
--- NOTE | 2025-01-17 12:59 | EKG ---
Test Reason : sob Blood Pressure : */* mmHG Vent. Rate : 90 BPM Atrial Rate : 90 BPM P-R Int : 124 ms QRS Dur : 94 ms QT Int : 370 ms P-R-T Axes : 90 -22 44 degrees QTc Int : 452 ms Normal sinus rhythm Normal ECG When compared with ECG of 15-JAN-2025 14:05, No significant change was found Confirmed by Prosper Mayorga MD ([id number]) on 01/17/2025 7:28:58 PM Referred By: Confirmed By: Prosper Mayorga MD
[2025-01-17 14:12] LABS: ABG ALLEN TEST POS; ABG BASE EXCESS 1.8 mmol/L (-2.0-2.0); ABG HCO3 25.7 mmol/L (22-26); ABG OXYGEN SATURATION 85.0 % (90-100); ABG PCO2 37.0 mmHg (35.0-45.0); ABG PH 7.450 (7.35-7.45); ABG PO2 48.0 mmHg (80.0-100.0)
[2025-01-17] MEDS: RESTORIL CAP 15 MG PO PRN (20:55)
[2025-01-18] MEDS: VISTARIL PO PRN (04:41)
[2025-01-18 06:12] LABS: MEAN PLATELET VOLUME 7.2 fL (7.4-11.0); RED CELL DISTRIBUTION WIDTH 17.3 % (11.6-16.5)
[2025-01-18 06:28] LABS: COR CA(FOR HYPOALB) 12.1 mg/dL (8.5-10.1); COR NA(FOR HYPERGLY) 146 mmol/L (136-145); CREATININE 0.91 mg/dL (0.55-1.02); eGFR NON BLACK RACES > 60 (>60)
[2025-01-18 06:56] LABS: BAND NEUTROPHILS % 1 % (0-10); PLATELET MORPHOLOGY COMMENT NORMAL (NORMAL)
[2025-01-18] MEDS ORDERED: CONSULT PHARMACY - POTASSIUM & MAGNESIUM XX SCH (08:00)
[2025-01-18] MEDS: MILK OF MAGNESIA PO SCH (09:28)
[2025-01-18] MEDS: K-DUR TAB 20 MEQ PO SCH (09:29)
[2025-01-18] MEDS: NovoLIN R (or HumuLIN R) SUBCUT PRN (11:20)
[2025-01-18] MEDS: VIBRAMYCIN 100 MG in D5W 250 ML IV 250 ML IV SCH (12:34)
--- NOTE | 2025-01-18 13:51 | PCM.PROG ---
Progress Note Progress Note for Day of Date of Exam: 01/18/25 Subjective Subjective: Patient seen at bedside, no acute events overnight. She did have trouble sleeping and was more agitated. Family reports some confusion last night but patient alert and oriented this morning. She is currently on heated high flow nasal cannula, FiO2 90% with sats above 92. She reports more coughing. Denies any fever or chills. Chest x-ray yesterday showed similar bilateral opacities. All her cultures including urine and blood culture have been negative. AIT is also negative. She remains on IV antibiotics and steroids. Labs/imaging reviewed: - WBC 7.7 hemoglobin 11.7 potassium 3.7 creatinine 0.91 calcium 12.1 - Chest x-ray 01/17/2025 reviewed - AIT negative - Blood cultures negative Plan: Wean O2 as tolerated. Repeat chest x-ray. Continue Zosyn and azithromycin. Add doxycycline. Continue bronchodilators. Taper Solu-Medrol. Telemetry [place] consult. Ativan as needed nightly. Vistaril prn for anxiety. Continue home medications as tolerated. Replace electrolytes as per protocol. Monitor a.m. labs and imaging. Time spent for clinical assessment, reviewing labs and imaging, physical exam, decision making and documentation greater than 45 minutes. Past Medical Family Social History Allergies: Allergies Sulfa (Sulfonamide Antibiotics) (SULFA) Adverse Reaction (Verified 01/15/25 13:38) "itching" Vital Signs and I&O's Vital Signs: Vital Signs Temperature 97.4 F Temperature 97.3 F Pulse Rate [Left Radial] 90 Pulse Rate [Left Radial] 78 Respiratory Rate 19 Respiratory Rate 20 Blood Pressure [Right Arm] 134/67 Blood Pressure [Right Arm] 136/59 O2 Sat by Pulse Oximetry 92 O2 Sat by Pulse Oximetry 94 Intake and Output: Intake & Output 01/15/25 01/16/25 01/17/25 01/18/25 23:59 23:59 23:59 23:59 Intake Total 486 / 486 260 / 260 70 / 70 Output Total 100 / 100 450 / 450 500 / 500 Balance 386 / 386 -190 / -190 -430 / -430 Physical Exam Oriented: Normal Eyes: Normal Ear: Normal Nose: Normal Throat: Normal Respiratory: Generalized, Rales and Rhonchi Cardiovascular: Normal Auscultation: Bowel Sounds: Normal Palpation: Normal Tenderness: Normal Skin: Decreased Turgur Musculoskeletal: Motor Deficit Psychiatric: Normal Mood Description: Calm Affect: Normal Speech Pattern: Clear and Appropriate Laboratory and Diagnostics 01/18/25 05:48 01/18/25 05:48 Labs: 01/18/25 09:52 Sputum - Expectorated Sputum - Final 01/17/25 10:05 Urine,Catheterized Urine Culture - Preliminary 01/15/25 16:15 Blood Blood Culture - Preliminary 01/15/25 16:00 Blood Blood Culture - Preliminary Laboratory WBC 7.7 X10^3/uL (3.6-10.0) 01/18/25 05:48 RBC 4.46 X10^6/uL (3.5-5.4) 01/18/25 05:48 Hgb 11.7 g/dL (12.0-16.0) L 01/18/25 05:48 Hct 35.3 % (36.0-47.0) L 01/18/25 05:48 MCV 79.2 fL (80.0-100.0) L 01/18/25 05:48 MCH 26.3 pg (27.0-34.0) L 01/18/25 05:48 MCHC 33.2 g/dL (33.0-35.0) 01/18/25 05:48 RDW 17.3 % (11.6-16.5) H 01/18/25 05:48 Plt Count 330 X10^3/uL (150.0-450.0) 01/18/25 05:48 Plt Count Comment Adequate (ADEQUATE) 01/18/25 05:48 MPV 7.2 fL (7.4-11.0) L 01/18/25 05:48 Neut % (Auto) 93.1 % (42.0-75.0) H 01/18/25 05:48 Lymph % (Auto) 3.9 % (21.0-51.0) L 01/18/25 05:48 [place] % (Auto) 2.9 % (0.0-13.0) 01/18/25 05:48 Eos % (Auto) 0.0 % (0.9-2.9) L 01/18/25 05:48 Baso % (Auto) 0.1 % (0.2-1.0) L 01/18/25 05:48 Neut # (Auto) 7.2 x10^3/uL (2.2-4.8) H 01/18/25 05:48 Lymph # (Auto) 0.3 X10^3/uL (1.3-2.9) L 01/18/25 05:48 [place] # (Auto) 0.2 x10^3/uL (0.3-0.8) L 01/18/25 05:48 Eos # (Auto) 0.0 x10^3/uL (0.0-0.2) 01/18/25 05:48 Baso # (Auto) 0.0 X10^3/uL (0.0-0.1) 01/18/25 05:48 Absolute Nucleated RBC 0.1 /100WBC 01/18/25 05:48 Total Counted 100 01/18/25 05:48 Neutrophils % (Manual) 97 % (39-76) H 01/18/25 05:48 Band Neutrophils % 1 % (0-10) 01/18/25 05:48 Lymphocytes % (Manual) 2 % (13-43) L 01/18/25 05:48 Plt Morphology Comment Normal (NORMAL) 01/18/25 05:48 RBC Morphology Abnormal (NORMAL) A 01/18/25 05:48 Hypochromasia Slight A 01/18/25 05:48 Anisocytosis Slight A 01/18/25 05:48 Microcytosis Slight A 01/18/25 05:48 D-Dimer 2.38 ug/ml (0.0-0.57) H 01/15/25 13:35 Sample Site Lrad 01/17/25 14:06 ABG pH 7.450 (7.35-7.45) 01/17/25 14:06 ABG pCO2 37.0 mmHg (35.0-45.0) 01/17/25 14:06 ABG pO2 48.0 mmHg (80.0-100.0) L* 01/17/25 14:06 ABG HCO3 25.7 mmol/L (22-26) 01/17/25 14:06 ABG O2 Saturation 85.0 % (90-100) L 01/17/25 14:06 ABG Base Excess 1.8 mmol/L (-2.0-2.0) 01/17/25 14:06 Smooth Test Pos 01/17/25 14:06 A-a Gradient 262.0 mmHg 01/17/25 14:06 FiO2 50.0 01/17/25 14:06 Blood Gas Comments Stephanie well ms 01/17/25 14:06 Sodium 144 mmol/L (136-145) 01/18/25 05:48 Corrected Sodium 146 mmol/L (136-145) H 01/18/25 05:48 Potassium 3.7 mmol/L (3.5-5.1) 01/18/25 05:48 Chloride 106 mmol/L (98-107) 01/18/25 05:48 Carbon Dioxide 30.8 mmol/L (21-32) 01/18/25 05:48 BUN 31 mg/dL (7-18) H 01/18/25 05:48 Creatinine 0.91 mg/dL (0.55-1.02) 01/18/25 05:48 Est GFR (MDRD) Af Amer > 60 (>60) 01/18/25 05:48 Est GFR (MDRD) Non-Af > 60 (>60) 01/18/25 05:48 Glucose 167 mg/dL (65-99) H 01/18/25 05:48 POC Glucose (mg/dL) 190 mg/dL (65-99) H 01/18/25 11:07 Lactic Acid 0.9 mmol/L (0.4-2.0) 01/15/25 16:00 Calcium 10.5 mg/dL (8.5-10.1) H 01/18/25 05:48 Corrected Calcium 12.1 mg/dL (8.5-10.1) H 01/18/25 05:48 Magnesium 2.2 mg/dL (2.0-2.9) 01/18/25 05:48 Total Bilirubin 0.60 mg/dL (0.2-1.0) 01/18/25 05:48 AST 45 Units/L (15-37) H 01/18/25 05:48 ALT 38 Units/L (12-78) 01/18/25 05:48 Alkaline Phosphatase 133 Units/L (46-116) H 01/18/25 05:48 Creatine Kinase 27 Units/L (26-192) 01/15/25 13:35 Troponin I High Sens 10.1 ng/L (4.0-60.0) 01/15/25 13:35 B-Natriuretic Peptide 58.9 pg/mL (0-79) 01/17/25 05:34 Total Protein 6.5 g/dL (6.4-8.2) 01/18/25 05:48 Albumin 2.0 g/dL (3.4-5.0) L 01/18/25 05:48 Globulin 4.5 g/dL (2.5-4.5) 01/18/25 05:48 Albumin/Globulin Ratio 0.4 Ratio (1.1-2.1) L 01/18/25 05:48 Specimen Type Catherized urine 01/17/25 10:05 Urine Color Yellow (YELLOW) 01/17/25 10:05 Urine Appearance Clear (CLEAR) 01/17/25 10:05 Urine pH 5.0 (5.0 - 8.0) 01/17/25 10:05 Ur Specific [place] 1.020 (1.000-1.030) 01/17/25 10:05 Urine Protein 2+ (NEGATIVE) 01/17/25 10:05 Urine Glucose (UA) 4+ (NEGATIVE) 01/17/25 10:05 Urine Ketones Negative (NEGATIVE) 01/17/25 10:05 Urine Blood 1+ (NEGATIVE) 01/17/25 10:05 Urine Nitrite Negative (NEGATIVE) 01/17/25 10:05 Urine Bilirubin Negative (NEGATIVE) 01/17/25 10:05 Urine Urobilinogen Normal (NORMAL) 01/17/25 10:05 Ur Leukocyte Esterase 1+ (NEGATIVE) 01/17/25 10:05 Urine RBC 0-2 /HPF (0-3) 01/17/25 10:05 Urine WBC 3-5 /HPF (0-5) 01/17/25 10:05 Ur Squamous Epith Cells Rare /HPF (NEGATIVE) 01/17/25 10:05 Urine Bacteria Trace /HPF (NEGATIVE) 01/17/25 10:05 Urine Yeast Few /HPF (NEGATIVE) 01/17/25 08:20 Ur Culture Indicated? Yes/culture set up 01/17/25 10:05 SARS-CoV-2 (PCR) Negative (NEGATIVE) 01/15/25 13:46 Influenza Type A (PCR) Negative (NEGATIVE) 01/15/25 13:46 Influenza Type B (PCR) Negative (NEGATIVE) 01/15/25 13:46 RSV (PCR) Negative (NEGATIVE) 01/15/25 13:46 Resp Viral Panel (PCR) See scanned report 01/15/25 20:25 Plan (1) Acute respiratory failure: Status: Acute Qualifiers: Respiratory failure complication: hypoxia Qualified Code(s): J96.01 - Acute respiratory failure with hypoxia (2) Hypoxia: Status: Acute (3) Pneumonia: Status: Acute Qualifiers: Laterality: bilateral Lung location: unspecified part of lung P neumonia type: due to unspecified organism Qualified Code(s): J18.9 - Pneumonia, unspecified organism (4) HTN (hypertension): Status: Chronic Qualifiers: Hypertension type: primary hypertension Qualified Code(s): I10 - Essential (primary) hypertension (5) Hypercalcemia: Status: Chronic (6) Generalized weakness: Status: Acute (7) Type 2 diabetes mellitus: Status: Chronic Qualifiers: Diabetes mellitus senior living insulin use: with food beverage supervisor use Diabetes mellitus complication status: with circulatory complication Diabetes mellitus complication detail: with other circulatory complications Qualified Code(s): E 11.59 - Type 2 diabetes mellitus with other circulatory complications; Z79.4 - longterm (current) use of insulin (8) Interstitial lung disease: Status: Chronic
[2025-01-18] MEDS ORDERED: SALINE 3% 15 ML NEB TX ONE (15:40)
--- NOTE | 2025-01-18 16:22 | RAD ---
EXAM: CHEST, 1 VIEW HISTORY: hypoxia; COMPARISON: 01/17/2025 TECHNIQUE: AP FINDINGS: Stable cardiac silhouette. Increased diffuse hazy airspace opacities. No large pleural effusion or visible pneumothorax. IMPRESSION: Increased diffuse hazy airspace opacities. THIS IS AN ELECTRONICALLY VERIFIED FINAL REPORT 01/18/2025 4:18 PM - Electronically signed by Diego Hawkins MD
[2025-01-18] MEDS: SALINE 3% 15 ML NEB TX NEB SCH (16:53)
[2025-01-18] MEDS: NS 250 ML IV 25 ML IV PRN (16:56)
[2025-01-18] MEDS: ATIVAN TAB 0.5 MG PO PRN (20:59)
[2025-01-18] MEDS: COLACE CAP 100 MG PO SCH (20:59)
[2025-01-19 06:16] LABS: MEAN PLATELET VOLUME 7.1 fL (7.4-11.0); RED CELL DISTRIBUTION WIDTH 17.4 % (11.6-16.5)
[2025-01-19 06:35] LABS: COR CA(FOR HYPOALB) 11.5 mg/dL (8.5-10.1); COR NA(FOR HYPERGLY) 144 mmol/L (136-145); CREATININE 1.01 mg/dL (0.55-1.02); eGFR NON BLACK RACES 55 (>60)
--- NOTE | 2025-01-19 11:09 | PCM.PROG ---
Progress Note Progress Note for Day of Date of Exam: 01/19/25 Subjective Subjective: Patient sitting up in bed this morning. She slept better last night after receiving ativan and vistaril. Reported mild confusion but much improved than night before. She is currently on heated high flow nasal cannula, FiO2 92% with sats above 92. She feels like she is breathing just a little easier. Denies any fever or chills. Chest x-ray yesterday showed similar bilateral opacities. All her cultures including urine and blood culture have been negative. AIT is also negative. She remains on IV antibiotics and steroids. Labs/imaging reviewed: - WBC 12.1, hemoglobin 12, platelets 400, sodium 143, potassium 3.9, creatinine 1.01, glucose 126 - Chest x-ray 01/18 reviewed - AIT negative - Echo pending - Blood cultures negative Plan: Wean O2 as tolerated. Repeat chest x-ray. Continue Zosyn, azithromycin, and doxycycline. Will discontinue azithromycin today. Continue bronchodilators, hypertonic saline nebs, Aggressive pulmonary toilet. IV Solu-Medrol 80mg Q12h. I/S, Telemetry [place] consult. Ativan as needed nightly. Vistaril prn for anxiety. Continue home medications as tolerated. Replace electrolytes as per protocol. Wean/titrate FiO2 as tolerated. Decrease vistaril to 25mg nightly. Discussed with patient again plan if breathing worsens. She is agreeable to escalating up to BiPAP but does not want to be intubated. She is a DNR. Monitor a.m. labs and imaging. Time spent for clinical assessment, reviewing labs and imaging, physical exam, decision making and documentation greater than 45 minutes. Past Medical Family Social History Allergies: Allergies Sulfa (Sulfonamide Antibiotics) (SULFA) Adverse Reaction (Verified 01/15/25 13:38) "itching" Review of Systems ROS changes noted: see HPI Vital Signs and I&O's Vital Signs: Vital Signs Temperature 97.8 F Temperature 97.8 F Pulse Rate [Left Radial] 76 Pulse Rate [Left Radial] 72 Respiratory Rate 28 Respiratory Rate 23 Respiratory Rate 22 Blood Pressure [Right Arm] 120/60 Blood Pressure [Right Arm] 155/79 O2 Sat by Pulse Oximetry 92 O2 Sat by Pulse Oximetry 93 Intake and Output: Intake & Output 09/22/25 01/17/25 01/18/25 01/19/25 23:59 23:59 23:59 23:59 Intake Total 486 / 486 260 / 260 1309 / 1309 50 / 50 Output Total 100 / 100 450 / 450 1650 / 1650 200 / 200 Balance 386 / 386 -190 / -190 -341 / -341 -150 / -150 Physical Exam Oriented: Normal Eyes: Normal Ear: Normal Nose: Normal Throat: Normal Respiratory: Generalized, Rales and Rhonchi Cardiovascular: Normal Auscultation: Bowel Sounds: Normal Tenderness: Normal Skin: Decreased Turgur Musculoskeletal: Motor Deficit Psychiatric: Normal Mood Description: Calm Affect: Normal Speech Pattern: Clear and Appropriate Laboratory and Diagnostics 01/19/25 05:38 01/19/25 05:38 Labs: 01/18/25 09:52 Sputum - Expectorated Sputum Sputum Culture - Preliminary 01/18/25 09:52 Sputum - Expectorated Sputum - Final 01/17/25 10:05 Urine,Catheterized Urine Culture - Final 01/15/25 16:15 Blood Blood Culture - Preliminary 01/15/25 16:00 Blood Blood Culture - Preliminary Laboratory WBC 12.1 X10^3/uL (3.6-10.0) H 01/19/25 05:38 RBC 4.62 X10^6/uL (3.5-5.4) 01/19/25 05:38 Hgb 12.0 g/dL (12.0-16.0) 01/19/25 05:38 Hct 36.4 % (36.0-47.0) 01/19/25 05:38 MCV 78.8 fL (80.0-100.0) L 01/19/25 05:38 MCH 26.0 pg (27.0-34.0) L 01/19/25 05:38 MCHC 33.0 g/dL (33.0-35.0) 01/19/25 05:38 RDW 17.4 % (11.6-16.5) H 01/19/25 05:38 Plt Count 400 X10^3/uL (150.0-450.0) 01/19/25 05:38 Plt Count Comment Adequate (ADEQUATE) 01/18/25 05:48 MPV 7.1 fL (7.4-11.0) L 01/19/25 05:38 Neut % (Auto) 89.4 % (42.0-75.0) H 01/19/25 05:38 Lymph % (Auto) 5.1 % (21.0-51.0) L 01/19/25 05:38 [place] % (Auto) 5.4 % (0.0-13.0) 01/19/25 05:38 Eos % (Auto) 0.0 % (0.9-2.9) L 01/19/25 05:38 Baso % (Auto) 0.1 % (0.2-1.0) L 01/19/25 05:38 Neut # (Auto) 10.8 x10^3/uL (2.2-4.8) H 01/19/25 05:38 Lymph # (Auto) 0.6 X10^3/uL (1.3-2.9) L 01/19/25 05:38 [place] # (Auto) 0.7 x10^3/uL (0.3-0.8) 01/19/25 05:38 Eos # (Auto) 0.0 x10^3/uL (0.0-0.2) 01/19/25 05:38 Baso # (Auto) 0.0 X10^3/uL (0.0-0.1) 01/19/25 05:38 Absolute Nucleated RBC 0.0 /100WBC 01/19/25 05:38 Total Counted 100 01/18/25 05:48 Neutrophils % (Manual) 97 % (39-76) H 01/18/25 05:48 Band Neutrophils % 1 % (0-10) 01/18/25 05:48 Lymphocytes % (Manual) 2 % (13-43) L 01/18/25 05:48 Plt Morphology Comment Normal (NORMAL) 01/18/25 05:48 RBC Morphology Abnormal (NORMAL) A 01/18/25 05:48 Hypochromasia Slight A 01/18/25 05:48 Anisocytosis Slight A 01/18/25 05:48 Microcytosis Slight A 01/18/25 05:48 D-Dimer 2.38 ug/ml (0.0-0.57) H 01/15/25 13:35 Sample Site Lrad 01/17/25 14:06 ABG pH 7.450 (7.35-7.45) 01/17/25 14:06 ABG pCO2 37.0 mmHg (35.0-45.0) 01/17/25 14:06 ABG pO2 48.0 mmHg (80.0-100.0) L* 01/17/25 14:06 ABG HCO3 25.7 mmol/L (22-26) 01/17/25 14:06 ABG O2 Saturation 85.0 % (90-100) L 01/17/25 14:06 ABG Base Excess 1.8 mmol/L (-2.0-2.0) 01/17/25 14:06 Smooth Test Pos 01/17/25 14:06 A-a Gradient 262.0 mmHg 01/17/25 14:06 FiO2 50.0 01/17/25 14:06 Blood Gas Comments Stephanie well ms 01/17/25 14:06 Sodium 143 mmol/L (136-145) 01/19/25 05:38 Corrected Sodium 144 mmol/L (136-145) 01/19/25 05:38 Potassium 3.9 mmol/L (3.5-5.1) 01/19/25 05:38 Chloride 107 mmol/L (98-107) 01/19/25 05:38 Carbon Dioxide 30.4 mmol/L (21-32) 01/19/25 05:38 BUN 28 mg/dL (7-18) H 01/19/25 05:38 Creatinine 1.01 mg/dL (0.55-1.02) 01/19/25 05:38 Est GFR (MDRD) Af Amer > 60 (>60) 01/19/25 05:38 Est GFR (MDRD) Non-Af 55 (>60) L 01/19/25 05:38 Glucose 126 mg/dL (65-99) H 01/19/25 05:38 POC Glucose (mg/dL) 124 mg/dL (65-99) H 01/19/25 06:08 Lactic Acid 0.9 mmol/L (0.4-2.0) 01/15/25 16:00 Calcium 10.0 mg/dL (8.5-10.1) 01/19/25 05:38 Corrected Calcium 11.5 mg/dL (8.5-10.1) H 01/19/25 05:38 Magnesium 2.2 mg/dL (2.0-2.9) 01/18/25 05:48 Total Bilirubin 0.70 mg/dL (0.2-1.0) 01/19/25 05:38 AST 55 Units/L (15-37) H 01/19/25 05:38 ALT 57 Units/L (12-78) 01/19/25 05:38 Alkaline Phosphatase 153 Units/L (46-116) H 01/19/25 05:38 Creatine Kinase 27 Units/L (26-192) 01/15/25 13:35 Troponin I High Sens 10.1 ng/L (4.0-60.0) 01/15/25 13:35 B-Natriuretic Peptide 58.9 pg/mL (0-79) 01/17/25 05:34 Total Protein 6.3 g/dL (6.4-8.2) L 01/19/25 05:38 Albumin 2.1 g/dL (3.4-5.0) L 01/19/25 05:38 Globulin 4.2 g/dL (2.5-4.5) 01/19/25 05:38 Albumin/Globulin Ratio 0.5 Ratio (1.1-2.1) L 01/19/25 05:38 Specimen Type Catherized urine 01/17/25 10:05 Urine Color Yellow (YELLOW) 01/17/25 10:05 Urine Appearance Clear (CLEAR) 01/17/25 10:05 Urine pH 5.0 (5.0 - 8.0) 01/17/25 10:05 Ur Specific [place] 1.020 (1.000-1.030) 01/17/25 10:05 Urine Protein 2+ (NEGATIVE) 01/17/25 10:05 Urine Glucose (UA) 4+ (NEGATIVE) 01/17/25 10:05 Urine Ketones Negative (NEGATIVE) 01/17/25 10:05 Urine Blood 1+ (NEGATIVE) 01/17/25 10:05 Urine Nitrite Negative (NEGATIVE) 01/17/25 10:05 Urine Bilirubin Negative (NEGATIVE) 01/17/25 10:05 Urine Urobilinogen Normal (NORMAL) 01/17/25 10:05 Ur Leukocyte Esterase 1+ (NEGATIVE) 01/17/25 10:05 Urine RBC 0-2 /HPF (0-3) 01/17/25 10:05 Urine WBC 3-5 /HPF (0-5) 01/17/25 10:05 Ur Squamous Epith Cells Rare /HPF (NEGATIVE) 01/17/25 10:05 Urine Bacteria Trace /HPF (NEGATIVE) 01/17/25 10:05 Urine Yeast Few /HPF (NEGATIVE) 01/17/25 08:20 Ur Culture Indicated? Yes/culture set up 01/17/25 10:05 SARS-CoV-2 (PCR) Negative (NEGATIVE) 01/15/25 13:46 Influenza Type A (PCR) Negative (NEGATIVE) 01/15/25 13:46 Influenza Type B (PCR) Negative (NEGATIVE) 01/15/25 13:46 RSV (PCR) Negative (NEGATIVE) 01/15/25 13:46 Resp Viral Panel (PCR) See scanned report 01/15/25 20:25 Plan (1) Acute respiratory failure: Status: Acute Qualifiers: Respiratory failure complication: hypoxia Qualified Code(s): J96.01 - Acute respiratory failure with hypoxia (2) Hypoxia: Status: Acute Plan: admit, resp therapy supplemenal o2 cta negative for PE, obtained on admission\\ iv atbx, bp and cardiac monitoring (3) Pneumonia: Status: Acute Qualifiers: Laterality: bilateral Lung location: unspecified part of lung P neumonia type: due to unspecified organism Qualified Code(s): J18.9 - Pneumonia, unspecified organism (4) HTN (hypertension): Status: Chronic Qualifiers: Hypertension type: primary hypertension Qualified Code(s): I10 - Essential (primary) hypertension (5) Hypercalcemia: Status: Chronic (6) Generalized weakness: Status: Acute (7) Type 2 diabetes mellitus: Status: Chronic Qualifiers: Diabetes mellitus custodial insulin use: with custodial use Diabetes mellitus complication status: with circulatory complication Diabetes mellitus complication detail: with other circulatory complications Qualified Code(s): E 11.59 - Type 2 diabetes mellitus with other circulatory complications; Z79.4 - merchandise support associate (current) use of insulin (8) Interstitial lung disease: Status: Chronic
[2025-01-19] MEDS: LASIX IVP ONE (14:06)
[2025-01-19] MEDS ORDERED: DIFLUCAN 100 MG IV (MIX by PHARMACY)* 100 MG/50 ML BAG IV SCH (20:00)
[2025-01-19] MEDS: VISTARIL PO SCH (21:03)
[2025-01-19] MEDS: ATIVAN TAB 0.5 MG PO SCH (21:04)
[2025-01-20 06:12] LABS: MEAN PLATELET VOLUME 7.0 fL (7.4-11.0); RED CELL DISTRIBUTION WIDTH 17.0 % (11.6-16.5)
[2025-01-20 06:33] LABS: COR CA(FOR HYPOALB) 11.3 mg/dL (8.5-10.1); COR NA(FOR HYPERGLY) 142 mmol/L (136-145); CREATININE 1.07 mg/dL (0.55-1.02); eGFR NON BLACK RACES 51 (>60)
[2025-01-20] MEDS ORDERED: CONSULT PHARMACY - POTASSIUM & MAGNESIUM XX SCH (08:00)
[2025-01-20] MEDS: DIFLUCAN 100 MG IV (MIX by PHARMACY)* 100 MG/50 ML BAG IV SCH (09:25)
[2025-01-20] MEDS: K-DUR TAB 20 MEQ PO SCH (09:26)
--- NOTE | 2025-01-20 10:23 | RAD ---
EXAM: 01/18/2025 HISTORY: pneumonia; COMPARI SON: 01/18/2025 FINDINGS: The trachea is midline. The cardiac silhouette is enlarged with a tortuous thoracic aorta. Improved interstitial lung changes with persistent prominent interstitial and vascular changes consistent with a resolving CHF.. The bony thorax is unremarkable. IMPRESSION: Changes consistent resolving CHF when compared to prior examination. Chronic interstitial lung changes are noted to be present. THIS IS AN ELECTRONICALLY VERIFIED FINAL REPORT 01/20/2025 10:19 AM - Electronically signed by Juan Eli MD
[2025-01-20] MEDS: LASIX IVP ONE (11:26)
--- NOTE | 2025-01-21 06:33 | RAD ---
EXAMINATION: CHEST, 1 VIEW HISTORY: pneumonia; . COMPARISON STUDY: 01/20/2025 TECHNIQUE: One view FINDINGS: Cardiomegaly is noted. Tortuous aorta. Decrease in interstitial infiltrates compared with the prior study. No new infiltrates, pneumothorax or other change noted. EKG leads overlie the chest. IMPRESSION: Decrease in interstitial infiltrates. Follow-up recommended No new infiltrates THIS IS AN ELECTRONICALLY VERIFIED FINAL REPORT 01/21/2025 6:30 AM - Electronically signed by Dano Summers MD
[2025-01-21 06:37] LABS: MEAN PLATELET VOLUME 6.9 fL (7.4-11.0); RED CELL DISTRIBUTION WIDTH 17.2 % (11.6-16.5)
[2025-01-21 06:42] LABS: COR CA(FOR HYPOALB) 11.6 mg/dL (8.5-10.1); COR NA(FOR HYPERGLY) 141.0 mmol/L (136-145); CREATININE 1.16 mg/dL (0.55-1.02); eGFR NON BLACK RACES 47.0 (>60)
--- NOTE | 2025-01-21 07:14 | PCM.PROG ---
Progress Note Progress Note for Day of Date of Exam: 01/20/25 Subjective Subjective: Patient resting in bed this morning. She is currently on heated high flow nasal cannula, FiO2 77% with sats above 90. Chest x-ray this morning. All her cultures including urine and blood culture have been negative. AIT is also negative. Sputum culture shows yeast. She remains on IV antibiotics and steroids. Labs/imaging reviewed: - WBC 10, hemoglobin 12.7, platelets 428, sodium 142, potassium 3.7, creatinine 1.07, glucose 122 - Chest x-ray resolving CHF when compared to prior examination. - AIT negative - Echo pending - Blood cultures negative Plan: Wean O2 as tolerated. Continue Zosyn, doxycycline and add diflucan. CHF resolving, will add IV lasix 20mg daily. Continue bronchodilators, hypertonic saline nebs, Aggressive pulmonary toilet. IV Solu-Medrol 80mg Q12h. I/S, Telemetry [place] consult. Ativan as needed nightly. Vistaril prn for anxiety. Continue home medications as tolerated. Replace electrolytes as per protocol. Wean/titrate FiO2 as tolerated. Otherwise continue with current treatment plan. Monitor a.m. labs and imaging. Time spent for clinical assessment, reviewing labs and imaging, physical exam, decision making and documentation greater than 45 minutes. Past Medical Family Social History Allergies: Allergies Sulfa (Sulfonamide Antibiotics) (SULFA) Adverse Reaction (Verified 01/15/25 13:38) "itching" Review of Systems ROS changes noted: see HPI Vital Signs and I&O's Vital Signs: Vital Signs Temperature 97.6 F Temperature 97.8 F Pulse Rate [Left Radial] 81 Pulse Rate [Left Radial] 75 Pulse Rate 72 Respiratory Rate 20 Respiratory Rate 19 Respiratory Rate 16 Blood Pressure [Right Arm] 157/69 Blood Pressure [Right Arm] 160/70 Blood Pressure [Right Arm] 169/74 O2 Sat by Pulse Oximetry 98 O2 Sat by Pulse Oximetry 95 O2 Sat by Pulse Oximetry 86 Intake and Output: Intake & Output 01/17/25 01/18/25 01/19/25 01/20/25 23:59 23:59 23:59 23:59 Intake Total 260 / 260 1309 / 1309 1930 / 1930 409 / 409 Output Total 450 / 450 1650 / 1650 1875 / 1875 630 / 630 Balance -190 / -190 -341 / -341 55 / 55 -221 / -221 Physical Exam Oriented: Normal Eyes: Normal Ear: Normal Nose: Normal Throat: Normal Respiratory: Generalized, Rales and Rhonchi Cardiovascular: Normal Auscultation: Bowel Sounds: Normal Tenderness: Normal Skin: Decreased Turgur Psychiatric: Normal Mood Description: Calm Affect: Normal Speech Pattern: Clear and Appropriate Laboratory and Diagnostics 01/21/25 05:57 01/21/25 05:57 Labs: 01/18/25 09:52 Sputum - Expectorated Sputum Sputum Culture - Preliminary 01/18/25 09:52 Sputum - Expectorated Sputum - Final 01/17/25 10:05 Urine,Catheterized Urine Culture - Final 01/15/25 16:15 Blood Blood Culture - Preliminary 01/15/25 16:00 Blood Blood Culture - Preliminary Laboratory WBC 10.0 X10^3/uL (3.6-10.0) 01/20/25 05:24 RBC 4.80 X10^6/uL (3.5-5.4) 01/20/25 05:24 Hgb 12.7 g/dL (12.0-16.0) 01/20/25 05:24 Hct 37.7 % (36.0-47.0) 01/20/25 05:24 MCV 78.6 fL (80.0-100.0) L 01/20/25 05:24 MCH 26.5 pg (27.0-34.0) L 01/20/25 05:24 MCHC 33.7 g/dL (33.0-35.0) 01/20/25 05:24 RDW 17.0 % (11.6-16.5) H 01/20/25 05:24 Plt Count 428 X10^3/uL (150.0-450.0) 01/20/25 05:24 Plt Count Comment Adequate (ADEQUATE) 01/18/25 05:48 MPV 7.0 fL (7.4-11.0) L 01/20/25 05:24 Neut % (Auto) 88.6 % (42.0-75.0) H 01/20/25 05:24 Lymph % (Auto) 5.5 % (21.0-51.0) L 01/20/25 05:24 [place] % (Auto) 5.8 % (0.0-13.0) 01/20/25 05:24 Eos % (Auto) 0.0 % (0.9-2.9) L 01/20/25 05:24 Baso % (Auto) 0.1 % (0.2-1.0) L 01/20/25 05:24 Neut # (Auto) 8.8 x10^3/uL (2.2-4.8) H 01/20/25 05:24 Lymph # (Auto) 0.6 X10^3/uL (1.3-2.9) L 01/20/25 05:24 [place] # (Auto) 0.6 x10^3/uL (0.3-0.8) 01/20/25 05:24 Eos # (Auto) 0.0 x10^3/uL (0.0-0.2) 01/20/25 05:24 Baso # (Auto) 0.0 X10^3/uL (0.0-0.1) 01/20/25 05:24 Absolute Nucleated RBC 0.1 /100WBC 01/20/25 05:24 Total Counted 100 01/18/25 05:48 Neutrophils % (Manual) 97 % (39-76) H 01/18/25 05:48 Band Neutrophils % 1 % (0-10) 01/18/25 05:48 Lymphocytes % (Manual) 2 % (13-43) L 01/18/25 05:48 Plt Morphology Comment Normal (NORMAL) 01/18/25 05:48 RBC Morphology Abnormal (NORMAL) A 01/18/25 05:48 Hypochromasia Slight A 01/18/25 05:48 Anisocytosis Slight A 01/18/25 05:48 Microcytosis Slight A 01/18/25 05:48 D-Dimer 2.38 ug/ml (0.0-0.57) H 01/15/25 13:35 Sample Site Lrad 01/17/25 14:06 ABG pH 7.450 (7.35-7.45) 01/17/25 14:06 ABG pCO2 37.0 mmHg (35.0-45.0) 01/17/25 14:06 ABG pO2 48.0 mmHg (80.0-100.0) L* 01/17/25 14:06 ABG HCO3 25.7 mmol/L (22-26) 01/17/25 14:06 ABG O2 Saturation 85.0 % (90-100) L 01/17/25 14:06 ABG Base Excess 1.8 mmol/L (-2.0-2.0) 01/17/25 14:06 Smooth Test Pos 01/17/25 14:06 A-a Gradient 262.0 mmHg 01/17/25 14:06 FiO2 50.0 01/17/25 14:06 Blood Gas Comments Stephanie well ms 01/17/25 14:06 Sodium 141 mmol/L (136-145) 01/20/25 05:24 Corrected Sodium 142 mmol/L (136-145) 01/20/25 05:24 Potassium 3.7 mmol/L (3.5-5.1) 01/20/25 05:24 Chloride 101 mmol/L (98-107) 01/20/25 05:24 Carbon Dioxide 31.3 mmol/L (21-32) 01/20/25 05:24 BUN 29 mg/dL (7-18) H 01/20/25 05:24 Creatinine 1.07 mg/dL (0.55-1.02) H 01/20/25 05:24 Est GFR (MDRD) Af Amer > 60 (>60) 01/20/25 05:24 Est GFR (MDRD) Non-Af 51 (>60) L 01/20/25 05:24 Glucose 122 mg/dL (65-99) H 01/20/25 05:24 POC Glucose (mg/dL) 141 mg/dL (65-99) H 01/20/25 09:21 Lactic Acid 0.9 mmol/L (0.4-2.0) 01/15/25 16:00 Calcium 9.9 mg/dL (8.5-10.1) 01/20/25 05:24 Corrected Calcium 11.3 mg/dL (8.5-10.1) H 01/20/25 05:24 Magnesium 2.2 mg/dL (2.0-2.9) 01/20/25 05:24 Total Bilirubin 0.80 mg/dL (0.2-1.0) 01/20/25 05:24 AST 38 Units/L (15-37) H 01/20/25 05:24 ALT 61 Units/L (12-78) 01/20/25 05:24 Alkaline Phosphatase 143 Units/L (46-116) H 01/20/25 05:24 Creatine Kinase 27 Units/L (26-192) 01/15/25 13:35 Troponin I High Sens 10.1 ng/L (4.0-60.0) 01/15/25 13:35 B-Natriuretic Peptide 58.9 pg/mL (0-79) 01/17/25 05:34 Total Protein 6.4 g/dL (6.4-8.2) 01/20/25 05:24 Albumin 2.2 g/dL (3.4-5.0) L 01/20/25 05:24 Globulin 4.2 g/dL (2.5-4.5) 01/20/25 05:24 Albumin/Globulin Ratio 0.5 Ratio (1.1-2.1) L 01/20/25 05:24 Specimen Type Catherized urine 01/17/25 10:05 Urine Color Yellow (YELLOW) 01/17/25 10:05 Urine Appearance Clear (CLEAR) 01/17/25 10:05 Urine pH 5.0 (5.0 - 8.0) 01/17/25 10:05 Ur Specific [place] 1.020 (1.000-1.030) 01/17/25 10:05 Urine Protein 2+ (NEGATIVE) 01/17/25 10:05 Urine Glucose (UA) 4+ (NEGATIVE) 01/17/25 10:05 Urine Ketones Negative (NEGATIVE) 01/17/25 10:05 Urine Blood 1+ (NEGATIVE) 01/17/25 10:05 Urine Nitrite Negative (NEGATIVE) 01/17/25 10:05 Urine Bilirubin Negative (NEGATIVE) 01/17/25 10:05 Urine Urobilinogen Normal (NORMAL) 01/17/25 10:05 Ur Leukocyte Esterase 1+ (NEGATIVE) 01/17/25 10:05 Urine RBC 0-2 /HPF (0-3) 01/17/25 10:05 Urine WBC 3-5 /HPF (0-5) 01/17/25 10:05 Ur Squamous Epith Cells Rare /HPF (NEGATIVE) 01/17/25 10:05 Urine Bacteria Trace /HPF (NEGATIVE) 01/17/25 10:05 Urine Yeast Few /HPF (NEGATIVE) 01/17/25 08:20 Ur Culture Indicated? Yes/culture set up 01/17/25 10:05 SARS-CoV-2 (PCR) Negative (NEGATIVE) 01/15/25 13:46 Influenza Type A (PCR) Negative (NEGATIVE) 01/15/25 13:46 Influenza Type B (PCR) Negative (NEGATIVE) 01/15/25 13:46 RSV (PCR) Negative (NEGATIVE) 01/15/25 13:46 Resp Viral Panel (PCR) See scanned report 01/15/25 20:25 Plan (1) Acute respiratory failure: Status: Acute Qualifiers: Respiratory failure complication: hypoxia Qualified Code(s): J96.01 - Acute respiratory failure with hypoxia (2) Hypoxia: Status: Acute Plan: admit, resp therapy supplemenal o2 cta negative for PE, obtained on admission\\ iv atbx, bp and cardiac monitoring (3) Pneumonia: Status: Acute Qualifiers: Laterality: bilateral Lung location: unspecified part of lung P neumonia type: due to unspecified organism Qualified Code(s): J18.9 - Pneumonia, unspecified organism (4) HTN (hypertension): Status: Chronic Qualifiers: Hypertension type: primary hypertension Qualified Code(s): I10 - Essential (primary) hypertension (5) Hypercalcemia: Status: Chronic (6) Generalized weakness: Status: Acute (7) Type 2 diabetes mellitus: Status: Chronic Qualifiers: Diabetes mellitus complication detail: with other circulatory complications Diabetes mellitus complication status: with circulatory complication Diabetes mellitus assisted insulin use: with assisted use Q ualified Code(s): E11.59 - Type 2 diabetes mellitus with other circulatory complications; Z79.4 - technician terminal and repeater (current) use of insulin (8) Interstitial lung disease: Status: Chronic
[2025-01-21] MEDS: LASIX IVP SCH (08:18)
--- NOTE | 2025-01-21 12:39 | NOTE.SOAP ---
Soap Note Note for Day of Date of Exam: 01/21/25 Subjective Data Subjective Data: Seen for daily rounds. Nurse and family at bedside. No acute events overnight. White count bumped up, calcium still high, creatinine still elevated. She remains on heated high flow. Not resting well on the Ativan at night. Recommendation was made to try Seroquel by [facility] consultant services. Objective Data Objective Data: In, elderly female on heated high flow nasal cannula. Does awaken to stimuli and then quickly falls back asleep. Heart regular rate and rhythm. Lungs diminished with rhonchi. Belly is soft with bowel sounds present. No edema of her extremities. Skin appropriate color. Assessment Assessment: Acute hypoxemic respiratory failure Bilateral pneumonia Hypercalcemia Severe sepsis (pneumonia, leukocytosis, tachycardia, tachypnea, RAMONE, respiratory failure) this was present on admission Plan Plan: Continue multiple antimicrobials. Continue fluid support. Hold Ativan tonight and try Seroquel 100. Did have a long discussion with family about potential risk and benefits of either medication and others and their classifications. They voiced understanding and agreement with plan. Follow-up labs and vitals tomorrow.
[2025-01-22 05:47] LABS: RED CELL DISTRIBUTION WIDTH 17.3 % (11.6-16.5)
[2025-01-22 05:50] LABS: MEAN PLATELET VOLUME 6.9 fL (7.4-11.0)
[2025-01-22 06:01] LABS: PLATELET MORPHOLOGY COMMENT NORMAL (NORMAL)
--- NOTE | 2025-01-22 06:01 | RAD ---
EXAMINATION: CHEST, 1 VIEW HISTORY: PNEUMONIA; . COMPARISON STUDY: Chest x-ray 06/07/2015 TECHNIQUE: Single frontal view of the chest FINDINGS: Lungs are expanded. Patchy interstitial alveolar infiltrates scattered in both lungs. Mild cardiac silhouette enlargement. Normal pulmonary vascular pattern. Bones are unchanged. IMPRESSION: Subtle opacities scattered in both lungs. Cardiac silhouette enlargement. THIS IS AN ELECTRONICALLY VERIFIED FINAL REPORT 01/22/2025 5:58 AM - Electronically signed by Alyce Wray MD
[2025-01-22 06:38] LABS: COR CA(FOR HYPOALB) 11.4 mg/dL (8.5-10.1); COR NA(FOR HYPERGLY) 142.0 mmol/L (136-145); CREATININE 1.26 mg/dL (0.55-1.02); eGFR NON BLACK RACES 42.0 (>60)
[2025-01-22 08:42] LABS: ABG BASE EXCESS 2.8 mmol/L (-2.0-2.0); ABG HCO3 25.9 mmol/L (22-26); ABG OXYGEN SATURATION 86.0 % (90-100); ABG PCO2 34.0 mmHg (35.0-45.0); ABG PH 7.490 (7.35-7.45)
[2025-01-22 08:43] LABS: ABG ALLEN TEST POS; ABG PO2 46.0 mmHg (80.0-100.0)
[2025-01-22] MEDS ORDERED: IMODIUM CAP 2 MG PO PRN (09:38)
[2025-01-22 11:56] LABS: CRYPTOSPORIDIUM PARVUM ANTIGEN NEGATIVE (NEGATIVE); GIARDIA LAMBLIA ANTIGEN NEGATIVE (NEGATIVE)
--- NOTE | 2025-01-22 15:45 | NOTE.SOAP ---
Soap Note Note for Day of Date of Exam: 01/22/25 Subjective Data Subjective Data: Patient seen with family and nurse at bedside. No acute events overnight. Slept much better with Seroquel compared to Ativan. She was not pulling at her lines and her O2 is much. Calcium still elevated, white cells mildly elevated. Left upper lobe seems to be clearing better than the rest of her chest x-ray. Objective Data Objective Data: More alert today. Head NCAT. Lungs diminished with rhonchi but better air movement. Belly is soft and nontender. Heart regular rate and rhythm. No swelling of her extremities. Assessment Assessment: Acute hypoxemic respiratory failure Bilateral pneumonia Hypercalcemia Severe sepsis (pneumonia, leukocytosis, tachycardia, tachypnea, RAMONE, respiratory failure) this was present on admission Plan Plan: Reclast 5mg, vitamin D level, consider calcitonin. CXR seems to be slowly improving. Continue current therapies.
[2025-01-22] MEDS: RECLAST IV ONE (17:37)
[2025-01-23 05:42] LABS: MEAN PLATELET VOLUME 7.0 fL (7.4-11.0); RED CELL DISTRIBUTION WIDTH 17.7 % (11.6-16.5)
[2025-01-23 05:49] LABS: COR CA(FOR HYPOALB) 11.1 mg/dL (8.5-10.1); COR NA(FOR HYPERGLY) 145.0 mmol/L (136-145); CREATININE 1.31 mg/dL (0.55-1.02); eGFR NON BLACK RACES 41.0 (>60)
[2025-01-23 06:13] LABS: PLATELET MORPHOLOGY COMMENT NORMAL (NORMAL)
--- NOTE | 2025-01-23 07:03 | RAD ---
EXAM: CHEST HISTORY: pneumonia; COMPARISON: .[email or web address] submitted for interpretation. FINDINGS: The cardiomediastinal silhouette is within normal limits. Lungs again show diffuse airspace disease. IMPRESSION: Diffuse bilateral airspace disease noted. Could be related to pulmonary edema. THIS IS AN ELECTRONICALLY VERIFIED FINAL REPORT 01/23/2025 7:00 AM - Electronically signed by Diego Gomes MD
[2025-01-23] MEDS ORDERED: CONSULT PHARMACY - POTASSIUM & MAGNESIUM XX SCH (07:08)
[2025-01-23] MEDS: K-DUR TAB 20 MEQ PO SCH (08:22)
--- NOTE | 2025-01-23 09:59 | PCM.PROG ---
Progress Note Progress Note for Day of Date of Exam: 01/23/25 Subjective Subjective: Patient seen at bedside, no acute events overnight. She slept better last night. She is currently on heated high flow nasal cannula, FiO2 53% with sats above 90. She was having diarrhea for the past few days which has slowed down. Her appetite is slightly better today. She remains on IV antibiotics and steroids. Labs/imaging reviewed: - WBC 10.6, hemoglobin 12.6, platelets 434, sodium 144, potassium 3.4, creatinine 1.31, glucose 143 Corrected calcium 11.1 - Chest x-ray: b/l airspace disease - AIT negative - Echo - Blood cultures negative -Stool studies (-) Plan: Wean O2 as tolerated. Continue Zosyn, doxycycline and diflucan. Taper steroids. Continue bronchodilators, hypertonic saline nebs, Aggressive pulmonary toilet. Hold stool softners. Hold lasix. Encourage PO intake, add Ensure clear. Seroquel qhs prn. Vistaril prn for anxiety. Continue home medications as tolerated. Replace electrolytes as per protocol. Otherwise continue with current treatment plan. Monitor a.m. labs and imaging. Time spent for clinical assessment, reviewing labs and imaging, physical exam, decision making and documentation greater than 45 minutes. Past Medical Family Social History Allergies: Allergies Sulfa (Sulfonamide Antibiotics) (SULFA) Adverse Reaction (Verified 01/15/25 13:38) "itching" Vital Signs and I&O's Vital Signs: Vital Signs Temperature 97.9 F Pulse Rate [Left Radial] 78 Respiratory Rate 19 Respiratory Rate 20 Blood Pressure [Left Arm] 144/66 O2 Sat by Pulse Oximetry 94 Intake and Output: Intake & Output 01/20/25 01/21/25 01/22/25 01/23/25 23:59 23:59 23:59 23:59 Intake Total 1545 / 1545 1171 / 1171 1247 / 1247 139 / 139 Output Total 2054 / 2054 1575 / 1575 1350 / 1350 150 / 150 Balance -510 / -510 -404 / -404 -103 / -103 -11 / -11 Physical Exam Oriented: Normal Eyes: Normal Ear: Normal Nose: Normal Throat: Normal Respiratory: Generalized and Diminished Cardiovascular: Normal Auscultation: Bowel Sounds: Normal Palpation: Normal Tenderness: Normal Skin: Decreased Turgur Musculoskeletal: Motor Deficit Psychiatric: Normal Mood Description: Calm Affect: Normal Speech Pattern: Clear and Appropriate Laboratory and Diagnostics 01/23/25 05:09 01/23/25 05:09 Labs: 01/22/25 10:50 Stool - Final 01/18/25 09:52 Sputum - Expectorated Sputum Sputum Culture - Preliminary 01/18/25 09:52 Sputum - Expectorated Sputum - Final 01/15/25 16:15 Blood Blood Culture - Final 01/15/25 16:00 Blood Blood Culture - Final 01/17/25 10:05 Urine,Catheterized Urine Culture - Final Laboratory WBC 10.6 X10^3/uL (3.6-10.0) H 01/23/25 05:09 RBC 4.81 X10^6/uL (3.5-5.4) 01/23/25 05:09 Hgb 12.6 g/dL (12.0-16.0) 01/23/25 05:09 Hct 38.0 % (36.0-47.0) 01/23/25 05:09 MCV 79.0 fL (80.0-100.0) L 01/23/25 05:09 MCH 26.3 pg (27.0-34.0) L 01/23/25 05:09 MCHC 33.2 g/dL (33.0-35.0) 01/23/25 05:09 RDW 17.7 % (11.6-16.5) H 01/23/25 05:09 Plt Count 434 X10^3/uL (150.0-450.0) 01/23/25 05:09 Plt Count Comment Adequate (ADEQUATE) 01/23/25 05:09 MPV 7.0 fL (7.4-11.0) L 01/23/25 05:09 Neut % (Auto) 91.4 % (42.0-75.0) H 01/23/25 05:09 Lymph % (Auto) 4.4 % (21.0-51.0) L 01/23/25 05:09 [place] % (Auto) 4.1 % (0.0-13.0) 01/23/25 05:09 Eos % (Auto) 0.0 % (0.9-2.9) L 01/23/25 05:09 Baso % (Auto) 0.1 % (0.2-1.0) L 01/23/25 05:09 Neut # (Auto) 9.7 x10^3/uL (2.2-4.8) H 01/23/25 05:09 Lymph # (Auto) 0.5 X10^3/uL (1.3-2.9) L 01/23/25 05:09 [place] # (Auto) 0.4 x10^3/uL (0.3-0.8) 01/23/25 05:09 Eos # (Auto) 0.0 x10^3/uL (0.0-0.2) 01/23/25 05:09 Baso # (Auto) 0.0 X10^3/uL (0.0-0.1) 01/23/25 05:09 Absolute Nucleated RBC 0.1 /100WBC 01/23/25 05:09 Total Counted 100 01/23/25 05:09 Neutrophils % (Manual) 97 % (39-76) H 01/23/25 05:09 Band Neutrophils % 1 % (0-10) 01/18/25 05:48 Lymphocytes % (Manual) 2 % (13-43) L 01/23/25 05:09 Monocytes % (Manual) 1 % (4-9) L 01/23/25 05:09 Plt Morphology Comment Normal (NORMAL) 01/23/25 05:09 RBC Morphology Abnormal (NORMAL) A 01/23/25 05:09 Hypochromasia Slight A 01/23/25 05:09 Anisocytosis Slight A 01/23/25 05:09 Microcytosis Slight A 01/23/25 05:09 D-Dimer 2.38 ug/ml (0.0-0.57) H 01/15/25 13:35 Sample Site Rrad 01/22/25 08:40 ABG pH 7.490 (7.35-7.45) H 01/22/25 08:40 ABG pCO2 34.0 mmHg (35.0-45.0) L 01/22/25 08:40 ABG pO2 46.0 mmHg (80.0-100.0) L* 01/22/25 08:40 ABG HCO3 25.9 mmol/L (22-26) 01/22/25 08:40 ABG O2 Saturation 86.0 % (90-100) L 01/22/25 08:40 ABG Base Excess 2.8 mmol/L (-2.0-2.0) H 01/22/25 08:40 Smooth Test Pos 01/22/25 08:40 A-a Gradient 247.0 mmHg 01/22/25 08:40 FiO2 47.0 01/22/25 08:40 Blood Gas Comments Stephanie well ms 01/22/25 08:40 Sodium 144 mmol/L (136-145) 01/23/25 05:09 Corrected Sodium 145 mmol/L (136-145) 01/23/25 05:09 Potassium 3.4 mmol/L (3.5-5.1) L 01/23/25 05:09 Chloride 104 mmol/L (98-107) 01/23/25 05:09 Carbon Dioxide 28.6 mmol/L (21-32) 01/23/25 05:09 BUN 47 mg/dL (7-18) H 01/23/25 05:09 Creatinine 1.31 mg/dL (0.55-1.02) H 01/23/25 05:09 Est GFR (MDRD) Af Amer 49 (>60) L 01/23/25 05:09 Est GFR (MDRD) Non-Af 41 (>60) L 01/23/25 05:09 Glucose 158 mg/dL (65-99) H 01/23/25 05:09 POC Glucose (mg/dL) 143 mg/dL (65-99) H 01/23/25 05:09 Lactic Acid 0.9 mmol/L (0.4-2.0) 01/15/25 16:00 Calcium 9.7 mg/dL (8.5-10.1) 01/23/25 05:09 Corrected Calcium 11.1 mg/dL (8.5-10.1) H 01/23/25 05:09 Magnesium 1.9 mg/dL (2.0-2.9) L 01/23/25 05:09 Total Bilirubin 0.60 mg/dL (0.2-1.0) 01/23/25 05:09 AST 21 Units/L (15-37) 01/23/25 05:09 ALT 40 Units/L (12-78) 01/23/25 05:09 Alkaline Phosphatase 101 Units/L (46-116) 01/23/25 05:09 Creatine Kinase 27 Units/L (26-192) 01/15/25 13:35 Troponin I High Sens 10.1 ng/L (4.0-60.0) 01/15/25 13:35 B-Natriuretic Peptide 58.9 pg/mL (0-79) 01/17/25 05:34 Total Protein 5.7 g/dL (6.4-8.2) L 01/23/25 05:09 Albumin 2.2 g/dL (3.4-5.0) L 01/23/25 05:09 Globulin 3.5 g/dL (2.5-4.5) 01/23/25 05:09 Albumin/Globulin Ratio 0.6 Ratio (1.1-2.1) L 01/23/25 05:09 Specimen Type Catherized urine 01/17/25 10:05 Urine Color Yellow (YELLOW) 01/17/25 10:05 Urine Appearance Clear (CLEAR) 01/17/25 10:05 Urine pH 5.0 (5.0 - 8.0) 01/17/25 10:05 Ur Specific [place] 1.020 (1.000-1.030) 01/17/25 10:05 Urine Protein 2+ (NEGATIVE) 01/17/25 10:05 Urine Glucose (UA) 4+ (NEGATIVE) 01/17/25 10:05 Urine Ketones Negative (NEGATIVE) 01/17/25 10:05 Urine Blood 1+ (NEGATIVE) 01/17/25 10:05 Urine Nitrite Negative (NEGATIVE) 01/17/25 10:05 Urine Bilirubin Negative (NEGATIVE) 01/17/25 10:05 Urine Urobilinogen Normal (NORMAL) 01/17/25 10:05 Ur Leukocyte Esterase 1+ (NEGATIVE) 01/17/25 10:05 Urine RBC 0-2 /HPF (0-3) 01/17/25 10:05 Urine WBC 3-5 /HPF (0-5) 01/17/25 10:05 Ur Squamous Epith Cells Rare /HPF (NEGATIVE) 01/17/25 10:05 Urine Bacteria Trace /HPF (NEGATIVE) 01/17/25 10:05 Urine Yeast Few /HPF (NEGATIVE) 01/17/25 08:20 Ur Culture Indicated? Yes/culture set up 01/17/25 10:05 Stool for White Cells Negative (NEGATIVE) 01/22/25 10:50 Stl C. diff Tox B Gene Negative (NEGATIVE) 01/22/25 10:50 Stl C. diff [id number] Presumptive negative (NEGATIVE) 01/22/25 10:50 SARS-CoV-2 (PCR) Negative (NEGATIVE) 01/15/25 13:46 Cryptosporid parvum Ag Negative (NEGATIVE) 01/22/25 10:50 Giardia lamblia Ag Negative (NEGATIVE) 01/22/25 10:50 Influenza Type A (PCR) Negative (NEGATIVE) 01/15/25 13:46 Influenza Type B (PCR) Negative (NEGATIVE) 01/15/25 13:46 RSV (PCR) Negative (NEGATIVE) 01/15/25 13:46 Resp Viral Panel (PCR) See scanned report 01/15/25 20:25 Plan (1) Acute respiratory failure: Status: Acute Qualifiers: Respiratory failure complication: hypoxia Qualified Code(s): J96.01 - Acute respiratory failure with hypoxia (2) Hypoxia: Status: Acute (3) Pneumonia: Status: Acute Qualifiers: Laterality: bilateral Lung location: unspecified part of lung P neumonia type: due to unspecified organism Qualified Code(s): J18.9 - Pneumonia, unspecified organism (4) HTN (hypertension): Status: Chronic Qualifiers: Hypertension type: primary hypertension Qualified Code(s): I10 - Essential (primary) hypertension (5) Hypercalcemia: Status: Chronic (6) Generalized weakness: Status: Acute (7) Type 2 diabetes mellitus: Status: Chronic Qualifiers: Diabetes mellitus complication detail: with other circulatory complications Diabetes mellitus complication status: with circulatory complication Diabetes mellitus intermediate teacher insulin use: with intermediate teacher use Q ualified Code(s): E11.59 - Type 2 diabetes mellitus with other circulatory complications; Z79.4 - jail (current) use of insulin (8) Interstitial lung disease: Status: Chronic
[2025-01-23] MEDS: VISBIOME PROBIOTIC CAP 112.5 B or equivalent PO SCH (10:17)
[2025-01-24 05:59] LABS: MEAN PLATELET VOLUME 7.2 fL (7.4-11.0); RED CELL DISTRIBUTION WIDTH 17.5 % (11.6-16.5)
[2025-01-24 06:17] LABS: COR CA(FOR HYPOALB) 11.1 mg/dL (8.5-10.1); COR NA(FOR HYPERGLY) 146.0 mmol/L (136-145); CREATININE 1.53 mg/dL (0.55-1.02); eGFR NON BLACK RACES 34.0 (>60)
[2025-01-24 06:30] LABS: BAND NEUTROPHILS % 1 % (0-10); PLATELET MORPHOLOGY COMMENT NORMAL (NORMAL)
[2025-01-24] MEDS ORDERED: CONSULT PHARMACY - POTASSIUM & MAGNESIUM XX SCH (07:00)
--- NOTE | 2025-01-24 08:09 | RAD ---
EXAMINATION: CHEST, 1 VIEW HISTORY: PNEUMONA; DM, HTN, ARRHYTHMIA SX: LARISA, LEFT HIP REPLACEMENT . COMPARISON STUDY: Chest x-ray 01/23/2025 TECHNIQUE: Single portable AP view of the chest FINDINGS: Persistent interstitial alveolar infiltrates scattered in both lungs. Moderate cardiac silhouette enlargement. Normal pulmonary vascular pattern. Bones appear intact IMPRESSION: Persistent bilateral pulmonary infiltrates. Cardiac silhouette enlargement. THIS IS AN ELECTRONICALLY VERIFIED FINAL REPORT 01/24/2025 8:06 AM - Electronically signed by Alyce Wray MD
[2025-01-24] MEDS: K-DUR TAB 20 MEQ PO ONE (08:59)
[2025-01-24] MEDS: CRESTOR TAB 10 MG PO SCH (08:59)
--- NOTE | 2025-01-24 09:43 | PCM.PROG ---
Progress Note Progress Note for Day of Date of Exam: 01/24/25 Subjective Subjective: Patient seen at bedside, no acute events overnight. She is currently on heated high flow nasal cannula, FiO2 50% with sats above 90. RT did try to transition her to NC 5L yesterday but was not successful. Her diarrhea has slowed down. Her appetite is slightly better today. She remains on IV antibiotics and steroids. She was able to sit on the chair yesterday. Labs/imaging reviewed: - WBC 14.2, hemoglobin 12.8, platelets 450, sodium 146, potassium 3.5, creatinine 1.53, glucose 155 Corrected calcium 11.1 - Chest x-ray: b/l opacities noted, normal vascular pattern - AIT negative - Echo - Blood cultures negative -Stool studies (-) Plan: Wean O2 as tolerated. Continue Zosyn, doxycycline and diflucan. Taper steroids. Continue bronchodilators, hypertonic saline nebs, Aggressive pulmonary toilet. Add smart vest. Hold stool softners. Hold lasix. Encourage PO intake, Ensure clear. Seroquel qhs prn. Vistaril prn for anxiety. Add magic mouthwash. Continue home medications as tolerated. Replace electrolytes as per protocol. Otherwise continue with current treatment plan. Monitor a.m. labs and imaging. Time spent for clinical assessment, reviewing labs and imaging, physical exam, decision making and documentation greater than 45 minutes. Past Medical Family Social History Allergies: Allergies Sulfa (Sulfonamide Antibiotics) (SULFA) Adverse Reaction (Verified 01/15/25 13:38) "itching" Vital Signs and I&O's Vital Signs: Vital Signs Temperature 97.6 F Pulse Rate [Left Radial] 77 Pulse Rate [Left Radial] 74 Respiratory Rate 18 Blood Pressure [Left Arm] 146/68 O2 Sat by Pulse Oximetry 100 O2 Sat by Pulse Oximetry 99 Intake and Output: Intake & Output 01/21/25 01/22/25 01/23/25 01/24/25 23:59 23:59 23:59 23:59 Intake Total 1171 / 1171 1247 / 1247 1797 / 1797 100 / 100 Output Total 1575 / 1575 1350 / 1350 450 / 450 Balance -404 / -404 -103 / -103 1347 / 1347 100 / 100 Physical Exam Oriented: Normal Eyes: Normal Ear: Normal Nose: Normal Throat: Normal Respiratory: Generalized and Diminished Cardiovascular: Normal Auscultation: Bowel Sounds: Normal Palpation: Normal Tenderness: Normal Skin: Decreased Turgur Musculoskeletal: Motor Deficit Psychiatric: Normal Mood Description: Calm Affect: Normal Speech Pattern: Clear and Appropriate Laboratory and Diagnostics 01/24/25 05:14 01/24/25 05:14 Labs: 01/22/25 10:50 Stool Stool Culture - Preliminary 01/22/25 10:50 Stool - Final 01/18/25 09:52 Sputum - Expectorated Sputum Sputum Culture - Preliminary 01/18/25 09:52 Sputum - Expectorated Sputum - Final 01/15/25 16:15 Blood Blood Culture - Final 01/15/25 16:00 Blood Blood Culture - Final 01/17/25 10:05 Urine,Catheterized Urine Culture - Final Laboratory WBC 14.2 X10^3/uL (3.6-10.0) H 01/24/25 05:14 RBC 4.99 X10^6/uL (3.5-5.4) 01/24/25 05:14 Hgb 12.8 g/dL (12.0-16.0) 01/24/25 05:14 Hct 39.4 % (36.0-47.0) 01/24/25 05:14 MCV 79.0 fL (80.0-100.0) L 01/24/25 05:14 MCH 25.7 pg (27.0-34.0) L 01/24/25 05:14 MCHC 32.5 g/dL (33.0-35.0) L 01/24/25 05:14 RDW 17.5 % (11.6-16.5) H 01/24/25 05:14 Plt Count 450 X10^3/uL (150.0-450.0) 01/24/25 05:14 Plt Count Comment Adequate (ADEQUATE) 01/24/25 05:14 MPV 7.2 fL (7.4-11.0) L 01/24/25 05:14 Neut % (Auto) 92.4 % (42.0-75.0) H 01/24/25 05:14 Lymph % (Auto) 3.4 % (21.0-51.0) L 01/24/25 05:14 [place] % (Auto) 4.2 % (0.0-13.0) 01/24/25 05:14 Eos % (Auto) 0.0 % (0.9-2.9) L 01/24/25 05:14 Baso % (Auto) 0 % (0.2-1.0) L 01/24/25 05:14 Neut # (Auto) 13.1 x10^3/uL (2.2-4.8) H 01/24/25 05:14 Lymph # (Auto) 0.5 X10^3/uL (1.3-2.9) L 01/24/25 05:14 [place] # (Auto) 0.6 x10^3/uL (0.3-0.8) 01/24/25 05:14 Eos # (Auto) 0.0 x10^3/uL (0.0-0.2) 01/24/25 05:14 Baso # (Auto) 0.0 X10^3/uL (0.0-0.1) 01/24/25 05:14 Absolute Nucleated RBC 0.1 /100WBC 01/24/25 05:14 Total Counted 100 01/24/25 05:14 Neutrophils % (Manual) 94 % (39-76) H 01/24/25 05:14 Band Neutrophils % 1 % (0-10) 01/24/25 05:14 Lymphocytes % (Manual) 2 % (13-43) L 01/24/25 05:14 Monocytes % (Manual) 3 % (4-9) L 01/24/25 05:14 Plt Morphology Comment Normal (NORMAL) 01/24/25 05:14 RBC Morphology Abnormal (NORMAL) A 01/24/25 05:14 Hypochromasia Slight A 01/24/25 05:14 Anisocytosis Slight A 01/24/25 05:14 Microcytosis Slight A 01/24/25 05:14 D-Dimer 2.38 ug/ml (0.0-0.57) H 01/15/25 13:35 Sample Site Rrad 01/22/25 08:40 ABG pH 7.490 (7.35-7.45) H 01/22/25 08:40 ABG pCO2 34.0 mmHg (35.0-45.0) L 01/22/25 08:40 ABG pO2 46.0 mmHg (80.0-100.0) L* 01/22/25 08:40 ABG HCO3 25.9 mmol/L (22-26) 01/22/25 08:40 ABG O2 Saturation 86.0 % (90-100) L 01/22/25 08:40 ABG Base Excess 2.8 mmol/L (-2.0-2.0) H 01/22/25 08:40 Smooth Test Pos 01/22/25 08:40 A-a Gradient 247.0 mmHg 01/22/25 08:40 FiO2 47.0 01/22/25 08:40 Blood Gas Comments Stephanie well ms 01/22/25 08:40 Sodium 145 mmol/L (136-145) 01/24/25 05:14 Corrected Sodium 146 mmol/L (136-145) H 01/24/25 05:14 Potassium 3.5 mmol/L (3.5-5.1) 01/24/25 05:14 Chloride 105 mmol/L (98-107) 01/24/25 05:14 Carbon Dioxide 29.6 mmol/L (21-32) 01/24/25 05:14 BUN 63 mg/dL (7-18) H 01/24/25 05:14 Creatinine 1.53 mg/dL (0.55-1.02) H 01/24/25 05:14 Est GFR (MDRD) Af Amer 41 (>60) L 01/24/25 05:14 Est GFR (MDRD) Non-Af 34 (>60) L 01/24/25 05:14 Glucose 155 mg/dL (65-99) H 01/24/25 05:14 POC Glucose (mg/dL) 160 mg/dL (65-99) H 01/24/25 04:59 Lactic Acid 0.9 mmol/L (0.4-2.0) 01/15/25 16:00 Calcium 9.7 mg/dL (8.5-10.1) 01/24/25 05:14 Corrected Calcium 11.1 mg/dL (8.5-10.1) H 01/24/25 05:14 Magnesium 2.0 mg/dL (2.0-2.9) 01/24/25 05:14 Total Bilirubin 0.60 mg/dL (0.2-1.0) 01/24/25 05:14 AST 17 Units/L (15-37) 01/24/25 05:14 ALT 38 Units/L (12-78) 01/24/25 05:14 Alkaline Phosphatase 96 Units/L (46-116) 01/24/25 05:14 Creatine Kinase 27 Units/L (26-192) 01/15/25 13:35 Troponin I High Sens 10.1 ng/L (4.0-60.0) 01/15/25 13:35 B-Natriuretic Peptide 38.0 pg/mL (0-79) 01/24/25 05:14 Total Protein 5.7 g/dL (6.4-8.2) L 01/24/25 05:14 Albumin 2.2 g/dL (3.4-5.0) L 01/24/25 05:14 Globulin 3.5 g/dL (2.5-4.5) 01/24/25 05:14 Albumin/Globulin Ratio 0.6 Ratio (1.1-2.1) L 01/24/25 05:14 Specimen Type Catherized urine 01/17/25 10:05 Urine Color Yellow (YELLOW) 01/17/25 10:05 Urine Appearance Clear (CLEAR) 01/17/25 10:05 Urine pH 5.0 (5.0 - 8.0) 01/17/25 10:05 Ur Specific [place] 1.020 (1.000-1.030) 01/17/25 10:05 Urine Protein 2+ (NEGATIVE) 01/17/25 10:05 Urine Glucose (UA) 4+ (NEGATIVE) 01/17/25 10:05 Urine Ketones Negative (NEGATIVE) 01/17/25 10:05 Urine Blood 1+ (NEGATIVE) 01/17/25 10:05 Urine Nitrite Negative (NEGATIVE) 01/17/25 10:05 Urine Bilirubin Negative (NEGATIVE) 01/17/25 10:05 Urine Urobilinogen Normal (NORMAL) 01/17/25 10:05 Ur Leukocyte Esterase 1+ (NEGATIVE) 01/17/25 10:05 Urine RBC 0-2 /HPF (0-3) 01/17/25 10:05 Urine WBC 3-5 /HPF (0-5) 01/17/25 10:05 Ur Squamous Epith Cells Rare /HPF (NEGATIVE) 01/17/25 10:05 Urine Bacteria Trace /HPF (NEGATIVE) 01/17/25 10:05 Urine Yeast Few /HPF (NEGATIVE) 01/17/25 08:20 Ur Culture Indicated? Yes/culture set up 01/17/25 10:05 Stool for White Cells Negative (NEGATIVE) 01/22/25 10:50 Stl C. diff Tox B Gene Negative (NEGATIVE) 01/22/25 10:50 Stl C. diff [id number] Presumptive negative (NEGATIVE) 01/22/25 10:50 SARS-CoV-2 (PCR) Negative (NEGATIVE) 01/15/25 13:46 Cryptosporid parvum Ag Negative (NEGATIVE) 01/22/25 10:50 Giardia lamblia Ag Negative (NEGATIVE) 01/22/25 10:50 Influenza Type A (PCR) Negative (NEGATIVE) 01/15/25 13:46 Influenza Type B (PCR) Negative (NEGATIVE) 01/15/25 13:46 RSV (PCR) Negative (NEGATIVE) 01/15/25 13:46 Resp Viral Panel (PCR) See scanned report 01/15/25 20:25 Plan (1) Acute respiratory failure: Status: Acute Qualifiers: Respiratory failure complication: hypoxia Qualified Code(s): J96.01 - Acute respiratory failure with hypoxia (2) Hypoxia: Status: Acute (3) Pneumonia: Status: Acute Qualifiers: Laterality: bilateral Lung location: unspecified part of lung P neumonia type: due to unspecified organism Qualified Code(s): J18.9 - Pneumonia, unspecified organism (4) HTN (hypertension): Status: Chronic Qualifiers: Hypertension type: primary hypertension Qualified Code(s): I10 - Essential (primary) hypertension (5) Hypercalcemia: Status: Chronic (6) Generalized weakness: Status: Acute (7) Type 2 diabetes mellitus: Status: Chronic Qualifiers: Diabetes mellitus complication detail: with other circulatory complications Diabetes mellitus complication status: with circulatory complication Diabetes mellitus detention insulin use: with detention use Q ualified Code(s): E11.59 - Type 2 diabetes mellitus with other circulatory complications; Z79.4 - terminal superintendent (current) use of insulin (8) Interstitial lung disease: Status: Chronic (9) Insomnia: Status: Acute Qualifiers: Insomnia type: unspecified Qualified Code(s): G47.00 - Insomnia, unspecified
[2025-01-24] MEDS: ZOSYN VIAL 3.375 GRAMS 3.375 G in NS 100 ML IV 100 ML IV SCH (21:18)
[2025-01-25 05:50] LABS: MEAN PLATELET VOLUME 7.3 fL (7.4-11.0); RED CELL DISTRIBUTION WIDTH 17.7 % (11.6-16.5)
[2025-01-25 06:08] LABS: COR CA(FOR HYPOALB) 11.0 mg/dL (8.5-10.1); COR NA(FOR HYPERGLY) 142.0 mmol/L (136-145); CREATININE 1.92 mg/dL (0.55-1.02); eGFR NON BLACK RACES 26.0 (>60)
[2025-01-25 06:14] LABS: ABG ALLEN TEST POS; ABG BASE EXCESS -0.2 mmol/L (-2.0-2.0); ABG HCO3 24.0 mmol/L (22-26); ABG OXYGEN SATURATION 90.0 % (90-100); ABG PCO2 37.0 mmHg (35.0-45.0); ABG PH 7.420 (7.35-7.45); ABG PO2 57.0 mmHg (80.0-100.0)
[2025-01-25] MEDS ORDERED: NS 1,000 ML IV 1,000 ML ONE (08:34)
[2025-01-25] MEDS: NS 1,000 ML IV 1,000 ML IV SCH (08:38)
--- NOTE | 2025-01-25 10:11 | PCM.PROG ---
Progress Note Progress Note for Day of Date of Exam: 01/25/25 Subjective Subjective: Patient seen at bedside, no acute events overnight. She is doing a lot better today. She has been tolerating 3L NC. She did sit on the chair yesterday. Her appetite is still not good, trying to drink Ensure. ABG has improved. Labs/imaging reviewed: - WBC 19.2, hemoglobin 12.6, platelets 493, sodium 141, potassium 4.1, creatinine 1.92, glucose 155 Corrected calcium 11.0 - Chest x-ray: b/l opacities noted, normal vascular pattern - AIT negative - Echo - Blood cultures negative -Stool studies (-) Plan: Wean O2 as tolerated. Continue Zosyn, doxycycline and diflucan. Stop steroids. Add gentle hydration and IV lasix. Monitor renal function. Continue bronchodilators, hypertonic saline nebs, Aggressive pulmonary toilet. Smart vest. Encourage PO intake, Ensure clear. Seroquel qhs prn. Vistaril prn for anxiety. Continue home medications as tolerated. Replace electrolytes as per protocol. PT/OT as tolerated. Monitor a.m. labs and imaging. Past Medical Family Social History Allergies: Allergies Sulfa (Sulfonamide Antibiotics) (SULFA) Adverse Reaction (Verified 01/15/25 13:38) "itching" Vital Signs and I&O's Vital Signs: Vital Signs Temperature 97.5 F Temperature 98.4 F Pulse Rate [Left Radial] 83 Pulse Rate [Left Radial] 83 Pulse Rate 82 Respiratory Rate 21 Respiratory Rate 20 Blood Pressure [Left Arm] 120/60 Blood Pressure [Left Arm] 134/61 O2 Sat by Pulse Oximetry 98 O2 Sat by Pulse Oximetry 96 O2 Sat by Pulse Oximetry 93 Intake and Output: Intake & Output 01/22/25 01/23/25 01/24/25 01/25/25 23:59 23:59 23:59 23:59 Intake Total 1247 / 1247 1797 / 1797 1189 / 1189 322 / 322 Output Total 1350 / 1350 450 / 450 Balance -103 / -103 1347 / 1347 1189 / 1189 322 / 322 Physical Exam Oriented: Normal Eyes: Normal Ear: Normal Nose: Normal Throat: Normal Respiratory: Rales Cardiovascular: Normal Auscultation: Bowel Sounds: Normal Palpation: Normal Tenderness: Normal Skin: Decreased Turgur Musculoskeletal: Motor Deficit Psychiatric: Normal Mood Description: Calm Affect: Normal Speech Pattern: Clear and Appropriate Laboratory and Diagnostics 01/25/25 05:16 01/25/25 05:16 Labs: 01/22/25 10:50 Stool Stool Culture - Preliminary 01/22/25 10:50 Stool - Final 01/18/25 09:52 Sputum - Expectorated Sputum Sputum Culture - Preliminary 01/18/25 09:52 Sputum - Expectorated Sputum - Final 01/15/25 16:15 Blood Blood Culture - Final 01/15/25 16:00 Blood Blood Culture - Final 01/17/25 10:05 Urine,Catheterized Urine Culture - Final Laboratory WBC 19.2 X10^3/uL (3.6-10.0) H 01/25/25 05:16 RBC 4.91 X10^6/uL (3.5-5.4) 01/25/25 05:16 Hgb 12.6 g/dL (12.0-16.0) 01/25/25 05:16 Hct 39.1 % (36.0-47.0) 01/25/25 05:16 MCV 79.7 fL (80.0-100.0) L 01/25/25 05:16 MCH 25.7 pg (27.0-34.0) L 01/25/25 05:16 MCHC 32.2 g/dL (33.0-35.0) L 01/25/25 05:16 RDW 17.7 % (11.6-16.5) H 01/25/25 05:16 Plt Count 493 X10^3/uL (150.0-450.0) H 01/25/25 05:16 Plt Count Comment Adequate (ADEQUATE) 01/24/25 05:14 MPV 7.3 fL (7.4-11.0) L 01/25/25 05:16 Neut % (Auto) 89.1 % (42.0-75.0) H 01/25/25 05:16 Lymph % (Auto) 4.1 % (21.0-51.0) L 01/25/25 05:16 [place] % (Auto) 6.7 % (0.0-13.0) 01/25/25 05:16 Eos % (Auto) 0.0 % (0.9-2.9) L 01/25/25 05:16 Baso % (Auto) 0.1 % (0.2-1.0) L 01/25/25 05:16 Neut # (Auto) 17.1 x10^3/uL (2.2-4.8) H 01/25/25 05:16 Lymph # (Auto) 0.8 X10^3/uL (1.3-2.9) L 01/25/25 05:16 [place] # (Auto) 1.3 x10^3/uL (0.3-0.8) H 01/25/25 05:16 Eos # (Auto) 0.0 x10^3/uL (0.0-0.2) 01/25/25 05:16 Baso # (Auto) 0.0 X10^3/uL (0.0-0.1) 01/25/25 05:16 Absolute Nucleated RBC 0.1 /100WBC 01/25/25 05:16 Total Counted 100 01/24/25 05:14 Neutrophils % (Manual) 94 % (39-76) H 01/24/25 05:14 Band Neutrophils % 1 % (0-10) 01/24/25 05:14 Lymphocytes % (Manual) 2 % (13-43) L 01/24/25 05:14 Monocytes % (Manual) 3 % (4-9) L 01/24/25 05:14 Plt Morphology Comment Normal (NORMAL) 01/24/25 05:14 RBC Morphology Abnormal (NORMAL) A 01/24/25 05:14 Hypochromasia Slight A 01/24/25 05:14 Anisocytosis Slight A 01/24/25 05:14 Microcytosis Slight A 01/24/25 05:14 D-Dimer 2.38 ug/ml (0.0-0.57) H 01/15/25 13:35 Sample Site R rad 01/25/25 06:09 ABG pH 7.420 (7.35-7.45) 01/25/25 06:09 ABG pCO2 37.0 mmHg (35.0-45.0) 01/25/25 06:09 ABG pO2 57.0 mmHg (80.0-100.0) L 01/25/25 06:09 ABG HCO3 24.0 mmol/L (22-26) 01/25/25 06:09 ABG O2 Saturation 90.0 % (90-100) 01/25/25 06:09 ABG Base Excess -0.2 mmol/L (-2.0-2.0) 01/25/25 06:09 Smooth Test Pos 01/25/25 06:09 A-a Gradient 153.0 mmHg 01/25/25 06:09 FiO2 36.0 01/25/25 06:09 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 01/25/25 06:09 Sodium 141 mmol/L (136-145) 01/25/25 05:16 Corrected Sodium 142 mmol/L (136-145) 01/25/25 05:16 Potassium 4.1 mmol/L (3.5-5.1) 01/25/25 05:16 Chloride 104 mmol/L (98-107) 01/25/25 05:16 Carbon Dioxide 25.8 mmol/L (21-32) 01/25/25 05:16 BUN 86 mg/dL (7-18) H 01/25/25 05:16 Creatinine 1.92 mg/dL (0.55-1.02) H 01/25/25 05:16 Est GFR (MDRD) Af Amer 32 (>60) L 01/25/25 05:16 Est GFR (MDRD) Non-Af 26 (>60) L 01/25/25 05:16 Glucose 162 mg/dL (65-99) H 01/25/25 05:16 POC Glucose (mg/dL) 155 mg/dL (65-99) H 01/25/25 05:24 Lactic Acid 0.9 mmol/L (0.4-2.0) 01/15/25 16:00 Calcium 9.6 mg/dL (8.5-10.1) 01/25/25 05:16 Corrected Calcium 11.0 mg/dL (8.5-10.1) H 01/25/25 05:16 Magnesium 2.0 mg/dL (2.0-2.9) 01/24/25 05:14 Total Bilirubin 0.60 mg/dL (0.2-1.0) 01/25/25 05:16 AST 26 Units/L (15-37) 01/25/25 05:16 ALT 33 Units/L (12-78) 01/25/25 05:16 Alkaline Phosphatase 96 Units/L (46-116) 01/25/25 05:16 Creatine Kinase 27 Units/L (26-192) 01/15/25 13:35 Troponin I High Sens 10.1 ng/L (4.0-60.0) 01/15/25 13:35 B-Natriuretic Peptide 38.0 pg/mL (0-79) 01/24/25 05:14 Total Protein 5.4 g/dL (6.4-8.2) L 01/25/25 05:16 Albumin 2.2 g/dL (3.4-5.0) L 01/25/25 05:16 Globulin 3.2 g/dL (2.5-4.5) 01/25/25 05:16 Albumin/Globulin Ratio 0.7 Ratio (1.1-2.1) L 01/25/25 05:16 Vitamin D 25-Hydroxy 70 ng/mL (30-100) 01/23/25 05:09 Specimen Type Catherized urine 01/17/25 10:05 Urine Color Yellow (YELLOW) 01/17/25 10:05 Urine Appearance Clear (CLEAR) 01/17/25 10:05 Urine pH 5.0 (5.0 - 8.0) 01/17/25 10:05 Ur Specific [place] 1.020 (1.000-1.030) 01/17/25 10:05 Urine Protein 2+ (NEGATIVE) 01/17/25 10:05 Urine Glucose (UA) 4+ (NEGATIVE) 01/17/25 10:05 Urine Ketones Negative (NEGATIVE) 01/17/25 10:05 Urine Blood 1+ (NEGATIVE) 01/17/25 10:05 Urine Nitrite Negative (NEGATIVE) 01/17/25 10:05 Urine Bilirubin Negative (NEGATIVE) 01/17/25 10:05 Urine Urobilinogen Normal (NORMAL) 01/17/25 10:05 Ur Leukocyte Esterase 1+ (NEGATIVE) 01/17/25 10:05 Urine RBC 0-2 /HPF (0-3) 01/17/25 10:05 Urine WBC 3-5 /HPF (0-5) 01/17/25 10:05 Ur Squamous Epith Cells Rare /HPF (NEGATIVE) 01/17/25 10:05 Urine Bacteria Trace /HPF (NEGATIVE) 01/17/25 10:05 Urine Yeast Few /HPF (NEGATIVE) 01/17/25 08:20 Ur Culture Indicated? Yes/culture set up 01/17/25 10:05 Stool for White Cells Negative (NEGATIVE) 01/22/25 10:50 Stl C. diff Tox B Gene Negative (NEGATIVE) 01/22/25 10:50 Stl C. diff [id number] Presumptive negative (NEGATIVE) 01/22/25 10:50 SARS-CoV-2 (PCR) Negative (NEGATIVE) 01/15/25 13:46 Cryptosporid parvum Ag Negative (NEGATIVE) 01/22/25 10:50 Giardia lamblia Ag Negative (NEGATIVE) 01/22/25 10:50 Influenza Type A (PCR) Negative (NEGATIVE) 01/15/25 13:46 Influenza Type B (PCR) Negative (NEGATIVE) 01/15/25 13:46 RSV (PCR) Negative (NEGATIVE) 01/15/25 13:46 Resp Viral Panel (PCR) See scanned report 01/15/25 20:25 Plan (1) Acute respiratory failure: Status: Acute Qualifiers: Respiratory failure complication: hypoxia Qualified Code(s): J96.01 - Acute respiratory failure with hypoxia (2) Hypoxia: Status: Acute (3) Pneumonia: Status: Acute Qualifiers: Laterality: bilateral Lung location: unspecified part of lung P neumonia type: due to unspecified organism Qualified Code(s): J18.9 - Pneumonia, unspecified organism (4) HTN (hypertension): Status: Chronic Qualifiers: Hypertension type: primary hypertension Qualified Code(s): I10 - Essential (primary) hypertension (5) Hypercalcemia: Status: Chronic (6) Generalized weakness: Status: Acute (7) Type 2 diabetes mellitus: Status: Chronic Qualifiers: Diabetes mellitus complication detail: with other circulatory complications Diabetes mellitus complication status: with circulatory complication Diabetes mellitus group home insulin use: with group home use Q ualified Code(s): E11.59 - Type 2 diabetes mellitus with other circulatory complications; Z79.4 - termite control servicer (current) use of insulin (8) Interstitial lung disease: Status: Chronic (9) Insomnia: Status: Acute Qualifiers: Insomnia type: unspecified Qualified Code(s): G47.00 - Insomnia, unspecified (10) Pulmonary edema: Status: Acute Qualifiers: Chronicity: chronic Qualified Code(s): J81.1 - Chronic pulmonary edema
[2025-01-25] MEDS: LASIX IVP SCH (10:15)
[2025-01-26 05:59] LABS: COR CA(FOR HYPOALB) 10.6 mg/dL (8.5-10.1); COR NA(FOR HYPERGLY) 144.0 mmol/L (136-145); CREATININE 2.15 mg/dL (0.55-1.02); eGFR NON BLACK RACES 23.0 (>60)
[2025-01-26 06:03] LABS: MEAN PLATELET VOLUME 7.2 fL (7.4-11.0); RED CELL DISTRIBUTION WIDTH 18.1 % (11.6-16.5)
[2025-01-26 06:12] LABS: BAND NEUTROPHILS % 3 % (0-10)
[2025-01-26 06:13] LABS: PLATELET MORPHOLOGY COMMENT NORMAL (NORMAL)
[2025-01-26] MEDS: MAGIC MOUTHWASH (Orig. Formula) MT PRN (09:50)
[2025-01-26 09:57] LABS: BLOOD/HEMOGLOBIN,URINE 4+ (NEGATIVE); LEUKOCYTE ESTERASE ,URINE NEGATIVE (NEGATIVE); NITRITES,URINE NEGATIVE (NEGATIVE)
[2025-01-26 09:58] LABS: APPEARANCE,URINE SLIGHTLY HAZY (CLEAR)
[2025-01-26 10:06] LABS: SQUAMOUS EPITHELIAL CELL,UR RARE /HPF (NEGATIVE); YEAST,URINE NUMEROUS /HPF (NEGATIVE)
--- NOTE | 2025-01-26 11:12 | PCM.PROG ---
Progress Note Progress Note for Day of Date of Exam: 01/26/25 Subjective Subjective: Patient resting in bed, no acute events overnight. She has been tolerating between 3-4L NC. Her appetite remains poor. She has also been holding her urine and not voiding regularly. Labs/imaging reviewed: - WBC 17.2, hemoglobin 11.6, platelets 377, sodium 144, potassium 4.0, creatinine 2.15, glucose 147 - Chest x-ray: b/l opacities noted, normal vascular pattern - AIT negative - Echo: 65-70% - Blood cultures negative - Stool studies (-) Plan: Wean O2 as tolerated. Continue Zosyn, doxycycline and diflucan. Continue gentle hydration, will place [place] to see if that will help improve renal function due to patient not voiding at regular intervals. Discontinue IV Lasix. Monitor renal function. Continue bronchodilators, hypertonic saline nebs, Aggressive pulmonary toilet. Smart vest. Encourage PO intake, Ensure clear. Seroquel qhs prn. Vistaril prn for anxiety. Continue home medications as tolerated. Replace electrolytes as per protocol. PT/OT as tolerated. Monitor a.m. labs and imaging. Time spent for clinical assessment, reviewing labs/imaging, physical exam, decision making and documentation greater than 45 mins. Past Medical Family Social History Allergies: Allergies Sulfa (Sulfonamide Antibiotics) (SULFA) Adverse Reaction (Verified 01/15/25 13:38) "itching" Review of Systems ROS changes noted: see HPI Vital Signs and I&O's Vital Signs: Vital Signs Temperature 97.5 F Temperature 97.0 F Pulse Rate [Left Radial] 78 Pulse Rate [Left Radial] 85 Respiratory Rate 17 Respiratory Rate 19 Blood Pressure [Left Arm] 114/55 Blood Pressure [Left Arm] 110/56 O2 Sat by Pulse Oximetry 100 O2 Sat by Pulse Oximetry 92 Intake and Output: Intake & Output 01/23/25 01/24/25 01/25/25 01/26/25 23:59 23:59 23:59 23:59 Intake Total 1797 / 1797 1189 / 1189 2204 / 2204 558 / 558 Output Total 450 / 450 Balance 1347 / 1347 1189 / 1189 2204 / 2204 558 / 558 Physical Exam Oriented: Normal Eyes: Normal Ear: Normal Nose: Normal Throat: Normal Respiratory: Diminished Cardiovascular: Normal Auscultation: Bowel Sounds: Normal Tenderness: Normal Skin: Decreased Turgur Musculoskeletal: Motor Deficit Psychiatric: Normal Mood Description: Calm Affect: Normal Speech Pattern: Clear and Appropriate Laboratory and Diagnostics 01/26/25 05:19 01/26/25 05:19 Labs: 01/22/25 10:50 Stool Stool Culture - Preliminary Nadiya Albicans 01/22/25 10:50 Stool - Final 01/18/25 09:52 Sputum - Expectorated Sputum Sputum Culture - Final Nadiya Albicans 01/18/25 09:52 Sputum - Expectorated Sputum - Final 01/15/25 16:15 Blood Blood Culture - Final 01/15/25 16:00 Blood Blood Culture - Final 01/17/25 10:05 Urine,Catheterized Urine Culture - Final Laboratory WBC 17.2 X10^3/uL (3.6-10.0) H 01/26/25 05:19 RBC 4.47 X10^6/uL (3.5-5.4) 01/26/25 05:19 Hgb 11.6 g/dL (12.0-16.0) L 01/26/25 05:19 Hct 35.4 % (36.0-47.0) L 01/26/25 05:19 MCV 79.3 fL (80.0-100.0) L 01/26/25 05:19 MCH 26.0 pg (27.0-34.0) L 01/26/25 05:19 MCHC 32.7 g/dL (33.0-35.0) L 01/26/25 05:19 RDW 18.1 % (11.6-16.5) H 01/26/25 05:19 Plt Count 377 X10^3/uL (150.0-450.0) 01/26/25 05:19 Plt Count Comment Adequate (ADEQUATE) 01/26/25 05:19 MPV 7.2 fL (7.4-11.0) L 01/26/25 05:19 Neut % (Auto) 90.8 % (42.0-75.0) H 01/26/25 05:19 Lymph % (Auto) 3.1 % (21.0-51.0) L 01/26/25 05:19 [place] % (Auto) 5.8 % (0.0-13.0) 01/26/25 05:19 Eos % (Auto) 0.0 % (0.9-2.9) L 01/26/25 05:19 Baso % (Auto) 0.3 % (0.2-1.0) 01/26/25 05:19 Neut # (Auto) 15.7 x10^3/uL (2.2-4.8) H 01/26/25 05:19 Lymph # (Auto) 0.5 X10^3/uL (1.3-2.9) L 01/26/25 05:19 [place] # (Auto) 1.0 x10^3/uL (0.3-0.8) H 01/26/25 05:19 Eos # (Auto) 0.0 x10^3/uL (0.0-0.2) 01/26/25 05:19 Baso # (Auto) 0.0 X10^3/uL (0.0-0.1) 01/26/25 05:19 Absolute Nucleated RBC 0.1 /100WBC 01/26/25 05:19 Total Counted 100 01/26/25 05:19 Neutrophils % (Manual) 89 % (39-76) H 01/26/25 05:19 Band Neutrophils % 3 % (0-10) 01/26/25 05:19 Lymphocytes % (Manual) 4 % (13-43) L 01/26/25 05:19 Monocytes % (Manual) 4 % (4-9) 01/26/25 05:19 Plt Morphology Comment Normal (NORMAL) 01/26/25 05:19 RBC Morphology Normal (NORMAL) 01/26/25 05:19 Hypochromasia Slight A 01/24/25 05:14 Anisocytosis Slight A 01/24/25 05:14 Microcytosis Slight A 01/24/25 05:14 D-Dimer 2.38 ug/ml (0.0-0.57) H 01/15/25 13:35 Sample Site R rad 01/25/25 06:09 ABG pH 7.420 (7.35-7.45) 01/25/25 06:09 ABG pCO2 37.0 mmHg (35.0-45.0) 01/25/25 06:09 ABG pO2 57.0 mmHg (80.0-100.0) L 01/25/25 06:09 ABG HCO3 24.0 mmol/L (22-26) 01/25/25 06:09 ABG O2 Saturation 90.0 % (90-100) 01/25/25 06:09 ABG Base Excess -0.2 mmol/L (-2.0-2.0) 01/25/25 06:09 Smooth Test Pos 01/25/25 06:09 A-a Gradient 153.0 mmHg 01/25/25 06:09 FiO2 36.0 01/25/25 06:09 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 01/25/25 06:09 Sodium 143 mmol/L (136-145) 01/26/25 05:19 Corrected Sodium 144 mmol/L (136-145) 01/26/25 05:19 Potassium 4.0 mmol/L (3.5-5.1) 01/26/25 05:19 Chloride 107 mmol/L (98-107) 01/26/25 05:19 Carbon Dioxide 25.1 mmol/L (21-32) 01/26/25 05:19 BUN 102 mg/dL (7-18) H 01/26/25 05:19 Creatinine 2.15 mg/dL (0.55-1.02) H 01/26/25 05:19 Est GFR (MDRD) Af Amer 28 (>60) L 01/26/25 05:19 Est GFR (MDRD) Non-Af 23 (>60) L 01/26/25 05:19 Glucose 147 mg/dL (65-99) H 01/26/25 05:19 POC Glucose (mg/dL) 153 mg/dL (65-99) H 01/26/25 05:30 Lactic Acid 0.9 mmol/L (0.4-2.0) 01/15/25 16:00 Calcium 9.1 mg/dL (8.5-10.1) 01/26/25 05:19 Corrected Calcium 10.6 mg/dL (8.5-10.1) H 01/26/25 05:19 Magnesium 2.0 mg/dL (2.0-2.9) 01/24/25 05:14 Total Bilirubin 0.60 mg/dL (0.2-1.0) 01/26/25 05:19 AST 27 Units/L (15-37) 01/26/25 05:19 ALT 29 Units/L (12-78) 01/26/25 05:19 Alkaline Phosphatase 92 Units/L (46-116) 01/26/25 05:19 Creatine Kinase 27 Units/L (26-192) 01/15/25 13:35 Troponin I High Sens 10.1 ng/L (4.0-60.0) 01/15/25 13:35 B-Natriuretic Peptide 38.0 pg/mL (0-79) 01/24/25 05:14 Total Protein 5.1 g/dL (6.4-8.2) L 01/26/25 05:19 Albumin 2.1 g/dL (3.4-5.0) L 01/26/25 05:19 Globulin 3.0 g/dL (2.5-4.5) 01/26/25 05:19 Albumin/Globulin Ratio 0.7 Ratio (1.1-2.1) L 01/26/25 05:19 Vitamin D 25-Hydroxy 70 ng/mL (30-100) 01/23/25 05:09 Specimen Type Catherized urine 01/26/25 09:38 Urine Color Yellow (YELLOW) 01/26/25 09:38 Urine Appearance Slightly hazy (CLEAR) 01/26/25 09:38 Urine pH 5.0 (5.0 - 8.0) 01/26/25 09:38 Ur Specific [place] 1.025 (1.000-1.030) 01/26/25 09:38 Urine Protein 2+ (NEGATIVE) 01/26/25 09:38 Urine Glucose (UA) 2+ (NEGATIVE) 01/26/25 09:38 Urine Ketones Negative (NEGATIVE) 01/26/25 09:38 Urine Blood 4+ (NEGATIVE) 01/26/25 09:38 Urine Nitrite Negative (NEGATIVE) 01/26/25 09:38 Urine Bilirubin Negative (NEGATIVE) 01/26/25 09:38 Urine Urobilinogen Normal (NORMAL) 01/26/25 09:38 Ur Leukocyte Esterase Negative (NEGATIVE) 01/26/25 09:38 Urine RBC 30-50 /HPF (0-3) A 01/26/25 09:38 Urine WBC 0-2 /HPF (0-5) 01/26/25 09:38 Ur Squamous Epith Cells Rare /HPF (NEGATIVE) 01/26/25 09:38 Urine Bacteria Negative /HPF (NEGATIVE) 01/26/25 09:38 Urine Yeast Numerous /HPF (NEGATIVE) 01/26/25 09:38 Ur Culture Indicated? Yes/culture set up 01/26/25 09:38 Stool for White Cells Negative (NEGATIVE) 01/22/25 10:50 Stl C. diff Tox B Gene Negative (NEGATIVE) 01/22/25 10:50 Stl C. diff [id number] Presumptive negative (NEGATIVE) 01/22/25 10:50 SARS-CoV-2 (PCR) Negative (NEGATIVE) 01/15/25 13:46 Cryptosporid parvum Ag Negative (NEGATIVE) 01/22/25 10:50 Giardia lamblia Ag Negative (NEGATIVE) 01/22/25 10:50 Influenza Type A (PCR) Negative (NEGATIVE) 01/15/25 13:46 Influenza Type B (PCR) Negative (NEGATIVE) 01/15/25 13:46 RSV (PCR) Negative (NEGATIVE) 01/15/25 13:46 Resp Viral Panel (PCR) See scanned report 01/15/25 20:25 Plan (1) Acute respiratory failure: Status: Acute Qualifiers: Respiratory failure complication: hypoxia Qualified Code(s): J96.01 - Acute respiratory failure with hypoxia (2) Hypoxia: Status: Acute Plan: admit, resp therapy supplemenal o2 cta negative for PE, obtained on admission\\ iv atbx, bp and cardiac monitoring (3) Pneumonia: Status: Acute Qualifiers: Laterality: bilateral Lung location: unspecified part of lung P neumonia type: due to unspecified organism Qualified Code(s): J18.9 - Pneumonia, unspecified organism (4) HTN (hypertension): Status: Chronic Qualifiers: Hypertension type: primary hypertension Qualified Code(s): I10 - Essential (primary) hypertension (5) Hypercalcemia: Status: Chronic (6) Generalized weakness: Status: Acute (7) Type 2 diabetes mellitus: Status: Chronic Qualifiers: Diabetes mellitus remote computer terminal operator insulin use: with penitentiary use Diabetes mellitus complication status: with circulatory complication Diabetes mellitus complication detail: with other circulatory complications Qualified Code(s): E 11.59 - Type 2 diabetes mellitus with other circulatory complications; Z79.4 - residential (current) use of insulin (8) Interstitial lung disease: Status: Chronic (9) Insomnia: Status: Acute Qualifiers: Insomnia type: unspecified Qualified Code(s): G47.00 - Insomnia, unspecified (10) Pulmonary edema: Status: Acute Qualifiers: Chronicity: chronic Qualified Code(s): J81.1 - Chronic pulmonary edema
[2025-01-26] MEDS: VISTARIL PO PRN (21:55)
[2025-01-27 05:25] LABS: MEAN PLATELET VOLUME 7.6 fL (7.4-11.0); RED CELL DISTRIBUTION WIDTH 17.7 % (11.6-16.5)
[2025-01-27 05:33] LABS: COR CA(FOR HYPOALB) 10.6 mg/dL (8.5-10.1); COR NA(FOR HYPERGLY) 144.0 mmol/L (136-145); CREATININE 1.9 mg/dL (0.55-1.02); eGFR NON BLACK RACES 26.0 (>60)
[2025-01-27 05:45] LABS: PLATELET MORPHOLOGY COMMENT NORMAL (NORMAL)
[2025-01-27] MEDS ORDERED: NovoLIN R (or HumuLIN R) SUBCUT PRN (11:10)
[2025-01-27] MEDS ORDERED: DEXTROSE 10% 1,000 ML IV PRN (11:10)
[2025-01-27] MEDS: MORPHINE SULFATE JET NEB NEB PRN (12:16)
[2025-01-27 12:43] LABS: PHOSPHORUS 4.8 mg/dL (2.6-4.7)
[2025-01-27] MEDS: CLINIMIX 4.25%-5% 1,000 ML with MVI INJ (ADULT) 10 ML IV SCH (12:44)
[2025-01-27] MEDS: DRUG FILTER EXTENSION SET ONE (12:45)
[2025-01-27] MEDS: MORPHINE SULFATE INJ 2 MG INJ IVP PRN (17:10)
[2025-01-27] MEDS: COLACE CAP 100 MG PO SCH (20:30)
[2025-01-27] MEDS: VISTARIL PO SCH (20:30)
[2025-01-27] MEDS: COLACE SYRUP 100 MG UDC PO SCH (21:11)
--- NOTE | 2025-01-27 22:08 | PCM.PROG ---
Progress Note Progress Note for Day of Date of Exam: 01/27/25 Subjective Subjective: Patient resting in bed, no acute events overnight. She appears more fatigued this morning which she also acknowledges herself. She reports that she has been feeling really tired. She does admit that has become more difficult with breathing. She has been tolerating between 4-5L NC. Her appetite remains poor. Labs/imaging reviewed: - WBC 20.9, hemoglobin 10.9, platelets 385, sodium 144, potassium 4.5, creatinine 1.90, glucose 121 - AIT negative - Echo: 65-70% - Blood cultures/Urine culture negative - Stool studies (-) Plan: Wean O2 as tolerated. Continue Zosyn, doxycycline and diflucan. Renal function has improved with placement of gomez. Continue to monitor renal function. Continue bronchodilators, hypertonic saline nebs, Aggressive pulmonary toilet. Smart vest. Encourage PO intake, due to lack of nutrition, will start on TPN. Seroquel qhs prn. Vistaril prn for anxiety. Patient is having episodes of air hunger, will order morphine to be given as needed to help. Repeat chest x- ray. Continue home medications as tolerated. Replace electrolytes as per protocol. PT/OT as tolerated. Discussed with family concern for possible deterioration of status. Patient and family is aware and is considering hospice care. They will discuss and notify care team. Monitor a.m. labs and imaging. Time spent for clinical assessment, reviewing labs/imaging, physical exam, decision making and documentation greater than 45 mins. Past Medical Family Social History Allergies: Allergies Sulfa (Sulfonamide Antibiotics) (SULFA) Adverse Reaction (Verified 01/15/25 13:38) "itching" Review of Systems ROS changes noted: see HPI Vital Signs and I&O's Vital Signs: Vital Signs Temperature 97.4 F Temperature 97.8 F Pulse Rate [Left Radial] 104 Pulse Rate [Left Radial] 104 Respiratory Rate 31 Respiratory Rate 35 Respiratory Rate 35 Respiratory Rate 35 Blood Pressure [Left Arm] 146/65 Blood Pressure [Left Arm] 160/69 O2 Sat by Pulse Oximetry 96 O2 Sat by Pulse Oximetry 93 Intake and Output: Intake & Output 01/24/25 01/25/25 01/26/25 01/27/25 23:59 23:59 23:59 23:59 Intake Total 1189 / 1189 2204 / 2204 2230 / 2230 2344 / 2344 Output Total 1000 / 1000 1250 / 1250 Balance 1189 / 1189 2204 / 2204 1230 / 1230 1094 / 1094 Physical Exam Oriented: Normal Eyes: Normal Ear: Normal Nose: Normal Throat: Normal Respiratory: Diminished Cardiovascular: Normal Auscultation: Bowel Sounds: Normal Tenderness: Normal Skin: Decreased Turgur Musculoskeletal: Motor Deficit Psychiatric: Normal Mood Description: Calm Affect: Normal Speech Pattern: Clear and Appropriate Laboratory and Diagnostics 01/27/25 04:50 01/27/25 04:50 Labs: 01/22/25 10:50 Stool Stool Culture - Final Nadiya Albicans 01/22/25 10:50 Stool - Final 01/26/25 09:38 Urine,Catheterized Urine Culture - Preliminary 01/18/25 09:52 Sputum - Expectorated Sputum Sputum Culture - Final Nadiya Albicans 01/18/25 09:52 Sputum - Expectorated Sputum - Final 01/15/25 16:15 Blood Blood Culture - Final 01/15/25 16:00 Blood Blood Culture - Final 01/17/25 10:05 Urine,Catheterized Urine Culture - Final Laboratory WBC 20.9 X10^3/uL (3.6-10.0) H 01/27/25 04:50 RBC 4.20 X10^6/uL (3.5-5.4) 01/27/25 04:50 Hgb 10.9 g/dL (12.0-16.0) L 01/27/25 04:50 Hct 33.0 % (36.0-47.0) L 01/27/25 04:50 MCV 78.7 fL (80.0-100.0) L 01/27/25 04:50 MCH 25.8 pg (27.0-34.0) L 01/27/25 04:50 MCHC 32.8 g/dL (33.0-35.0) L 01/27/25 04:50 RDW 17.7 % (11.6-16.5) H 01/27/25 04:50 Plt Count 385 X10^3/uL (150.0-450.0) 01/27/25 04:50 Plt Count Comment Adequate (ADEQUATE) 01/27/25 04:50 MPV 7.6 fL (7.4-11.0) 01/27/25 04:50 Neut % (Auto) 92.0 % (42.0-75.0) H 01/27/25 04:50 Lymph % (Auto) 3.2 % (21.0-51.0) L 01/27/25 04:50 [place] % (Auto) 4.2 % (0.0-13.0) 01/27/25 04:50 Eos % (Auto) 0.3 % (0.9-2.9) L 01/27/25 04:50 Baso % (Auto) 0.3 % (0.2-1.0) 01/27/25 04:50 Neut # (Auto) 19.3 x10^3/uL (2.2-4.8) H 01/27/25 04:50 Lymph # (Auto) 0.7 X10^3/uL (1.3-2.9) L 01/27/25 04:50 [place] # (Auto) 0.9 x10^3/uL (0.3-0.8) H 01/27/25 04:50 Eos # (Auto) 0.1 x10^3/uL (0.0-0.2) 01/27/25 04:50 Baso # (Auto) 0.1 X10^3/uL (0.0-0.1) 01/27/25 04:50 Absolute Nucleated RBC 0.5 /100WBC 01/27/25 04:50 Total Counted 100 01/27/25 04:50 Neutrophils % (Manual) 91 % (39-76) H 01/27/25 04:50 Band Neutrophils % 3 % (0-10) 01/26/25 05:19 Lymphocytes % (Manual) 4 % (13-43) L 01/27/25 04:50 Monocytes % (Manual) 4 % (4-9) 01/27/25 04:50 Eosinophils % (Manual) 1 % (0-6) 01/27/25 04:50 Plt Morphology Comment Normal (NORMAL) 01/27/25 04:50 RBC Morphology Abnormal (NORMAL) A 01/27/25 04:50 Hypochromasia Slight A 01/27/25 04:50 Poikilocytosis Slight A 01/27/25 04:50 Anisocytosis Slight A 01/27/25 04:50 Microcytosis Slight A 01/27/25 04:50 Ovalocytes Slight A 01/27/25 04:50 D-Dimer 2.38 ug/ml (0.0-0.57) H 01/15/25 13:35 Sample Site R rad 01/25/25 06:09 ABG pH 7.420 (7.35-7.45) 01/25/25 06:09 ABG pCO2 37.0 mmHg (35.0-45.0) 01/25/25 06:09 ABG pO2 57.0 mmHg (80.0-100.0) L 01/25/25 06:09 ABG HCO3 24.0 mmol/L (22-26) 01/25/25 06:09 ABG O2 Saturation 90.0 % (90-100) 01/25/25 06:09 ABG Base Excess -0.2 mmol/L (-2.0-2.0) 01/25/25 06:09 Smooth Test Pos 01/25/25 06:09 A-a Gradient 153.0 mmHg 01/25/25 06:09 FiO2 36.0 01/25/25 06:09 Blood Gas Comments 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 01/25/25 06:09 Sodium 143 mmol/L (136-145) 01/27/25 04:50 Corrected Sodium 144 mmol/L (136-145) 01/27/25 04:50 Potassium 4.5 mmol/L (3.5-5.1) 01/27/25 04:50 Chloride 109 mmol/L (98-107) H 01/27/25 04:50 Carbon Dioxide 19.5 mmol/L (21-32) L 01/27/25 04:50 BUN 104 mg/dL (7-18) H 01/27/25 04:50 Creatinine 1.90 mg/dL (0.55-1.02) H 01/27/25 04:50 Est GFR (MDRD) Af Amer 32 (>60) L 01/27/25 04:50 Est GFR (MDRD) Non-Af 26 (>60) L 01/27/25 04:50 Glucose 121 mg/dL (65-99) H 01/27/25 04:50 POC Glucose (mg/dL) 119 mg/dL (65-99) H 01/27/25 19:36 Lactic Acid 0.9 mmol/L (0.4-2.0) 01/15/25 16:00 Calcium 8.8 mg/dL (8.5-10.1) 01/27/25 04:50 Corrected Calcium 10.6 mg/dL (8.5-10.1) H 01/27/25 04:50 Phosphorus 4.8 mg/dL (2.6-4.7) H 01/27/25 12:18 Magnesium 1.7 mg/dL (2.0-2.9) L 01/27/25 12:18 Total Bilirubin 0.80 mg/dL (0.2-1.0) 01/27/25 04:50 AST 42 Units/L (15-37) H 01/27/25 04:50 ALT 28 Units/L (12-78) 01/27/25 04:50 Alkaline Phosphatase 96 Units/L (46-116) 01/27/25 04:50 Creatine Kinase 27 Units/L (26-192) 01/15/25 13:35 Troponin I High Sens 10.1 ng/L (4.0-60.0) 01/15/25 13:35 B-Natriuretic Peptide 38.0 pg/mL (0-79) 01/24/25 05:14 Total Protein 4.8 g/dL (6.4-8.2) L 01/27/25 04:50 Albumin 1.8 g/dL (3.4-5.0) L 01/27/25 04:50 Globulin 3.0 g/dL (2.5-4.5) 01/27/25 04:50 Albumin/Globulin Ratio 0.6 Ratio (1.1-2.1) L 01/27/25 04:50 Triglycerides 87 mg/dL (0-150) 01/27/25 12:18 Vitamin D 25-Hydroxy 70 ng/mL (30-100) 01/23/25 05:09 Specimen Type Catherized urine 01/26/25 09:38 Urine Color Yellow (YELLOW) 01/26/25 09:38 Urine Appearance Slightly hazy (CLEAR) 01/26/25 09:38 Urine pH 5.0 (5.0 - 8.0) 01/26/25 09:38 Ur Specific [place] 1.025 (1.000-1.030) 01/26/25 09:38 Urine Protein 2+ (NEGATIVE) 01/26/25 09:38 Urine Glucose (UA) 2+ (NEGATIVE) 01/26/25 09:38 Urine Ketones Negative (NEGATIVE) 01/26/25 09:38 Urine Blood 4+ (NEGATIVE) 01/26/25 09:38 Urine Nitrite Negative (NEGATIVE) 01/26/25 09:38 Urine Bilirubin Negative (NEGATIVE) 01/26/25 09:38 Urine Urobilinogen Normal (NORMAL) 01/26/25 09:38 Ur Leukocyte Esterase Negative (NEGATIVE) 01/26/25 09:38 Urine RBC 30-50 /HPF (0-3) A 01/26/25 09:38 Urine WBC 0-2 /HPF (0-5) 01/26/25 09:38 Ur Squamous Epith Cells Rare /HPF (NEGATIVE) 01/26/25 09:38 Urine Bacteria Negative /HPF (NEGATIVE) 01/26/25 09:38 Urine Yeast Numerous /HPF (NEGATIVE) 01/26/25 09:38 Ur Culture Indicated? Yes/culture set up 01/26/25 09:38 Stool for White Cells Negative (NEGATIVE) 01/22/25 10:50 Stl C. diff Tox B Gene Negative (NEGATIVE) 01/22/25 10:50 Stl C. diff [id number] Presumptive negative (NEGATIVE) 01/22/25 10:50 SARS-CoV-2 (PCR) Negative (NEGATIVE) 01/15/25 13:46 Cryptosporid parvum Ag Negative (NEGATIVE) 01/22/25 10:50 Giardia lamblia Ag Negative (NEGATIVE) 01/22/25 10:50 Influenza Type A (PCR) Negative (NEGATIVE) 01/15/25 13:46 Influenza Type B (PCR) Negative (NEGATIVE) 01/15/25 13:46 RSV (PCR) Negative (NEGATIVE) 01/15/25 13:46 Resp Viral Panel (PCR) See scanned report 01/15/25 20:25 Plan (1) Acute respiratory failure: Status: Acute Qualifiers: Respiratory failure complication: hypoxia Qualified Code(s): J96.01 - Acute respiratory failure with hypoxia (2) Hypoxia: Status: Acute Plan: admit, resp therapy supplemenal o2 cta negative for PE, obtained on admission\\ iv atbx, bp and cardiac monitoring (3) Pneumonia: Status: Acute Qualifiers: Laterality: bilateral Lung location: unspecified part of lung P neumonia type: due to unspecified organism Qualified Code(s): J18.9 - Pneumonia, unspecified organism (4) HTN (hypertension): Status: Chronic Qualifiers: Hypertension type: primary hypertension Qualified Code(s): I10 - Essential (primary) hypertension (5) Hypercalcemia: Status: Chronic (6) Generalized weakness: Status: Acute (7) Type 2 diabetes mellitus: Status: Chronic Qualifiers: Diabetes mellitus half-way insulin use: with half-way use Diabetes mellitus complication status: with circulatory complication Diabetes mellitus complication detail: with other circulatory complications Qualified Code(s): E 11.59 - Type 2 diabetes mellitus with other circulatory complications; Z79.4 - technician terminal and repeater (current) use of insulin (8) Interstitial lung disease: Status: Chronic (9) Insomnia: Status: Acute Qualifiers: Insomnia type: unspecified Qualified Code(s): G47.00 - Insomnia, unspecified (10) Pulmonary edema: Status: Acute Qualifiers: Chronicity: chronic Qualified Code(s): J81.1 - Chronic pulmonary edema
[2025-01-27] MEDS ORDERED: SALINE 0.9% 3 ML NEB TX ONE (23:48)
--- NOTE | 2025-01-28 06:31 | RAD ---
EXAM: CHEST HISTORY: HYPOXIA; COMPARISON: January 24, 2025. TECHNIQUE: Frontal view of the chest was submitted for interpretation. FINDINGS: The cardiomediastinal silhouette is stable in size. Lungs show low volumes with bilateral diffuse airspace disease. IMPRESSION: Low lung volumes with bilateral diffuse airspace disease. This could be related to pulmonary edema. Infection not excluded. THIS IS AN ELECTRONICALLY VERIFIED FINAL REPORT 01/28/2025 6:28 AM - Electronically signed by Diego Gomes MD
[2025-01-28 09:01] LABS: MEAN PLATELET VOLUME 7.9 fL (7.4-11.0); RED CELL DISTRIBUTION WIDTH 18.2 % (11.6-16.5)
[2025-01-28 09:11] LABS: COR CA(FOR HYPOALB) 10.8 mg/dL (8.5-10.1); COR NA(FOR HYPERGLY) 142.0 mmol/L (136-145); CREATININE 1.75 mg/dL (0.55-1.02); eGFR NON BLACK RACES 29.0 (>60)
[2025-01-28 09:39] LABS: PLATELET MORPHOLOGY COMMENT NORMAL (NORMAL)
[2025-01-28] MEDS: ATIVAN INJ 2 MG VIAL IVP ONE (10:34)
[2025-01-28] MEDS: ATIVAN 20 MG/10 ML VIAL ONE (10:39)
[2025-01-28] MEDS ORDERED: ISOPTO ATROPINE SL PRN (10:42)
[2025-01-28] MEDS ORDERED: MORPHINE SULFATE JET NEB NEB PRN (10:42)
[2025-01-28] MEDS ORDERED: ATIVAN INJ 2 MG VIAL IJ PRN (10:42)
[2025-01-28] MEDS ORDERED: TRANSDERM-SCOP TD PRN (10:42)
[2025-01-28] MEDS ORDERED: TYLENOL SUPP 650 MG PR PRN (10:42)
[2025-01-28] MEDS ORDERED: ATIVAN INJ 2 MG VIAL IVP PRN (10:45)
[2025-01-28] MEDS ORDERED: MORPHINE SULFATE ORAL SOLN UDC PO PRN (10:57)
[2025-01-28] MEDS ORDERED: MORPHINE SULFATE INJ 2 MG INJ ONE (10:58)
[2025-01-28] MEDS ORDERED: PHARMACY CONSULT XX SCH (11:00)
[2025-01-28] MEDS: MORPHINE SULFATE INJ 2 MG INJ IVP ONE (11:01)
[2025-01-28 12:29] VITALS: BP 104/67; PULSE 97; RESP 18; TEMP 98.1; O2SAT 96
--- NOTE | 2025-01-29 12:08 | W.DIS.FURT ---
Summary of Discharge Discharge Summary of Date Date of Exam: 01/28/25 Admission Date Date of Admission: 01/15/25 Admission Diagnosis Patient Problems (Updated 01/25/25 @ 10:11 by Nina Brewer MD) Hypoxia (Acute) R09.02 Pneumonia (Acute) J18.9 Hospital Course: Patient was a 89-year-old female with a past medical history of type 2 diabetes, GERD, hypertension and hyperlipidemia presented with generalized weakness and hypoxia. She was found to have bilateral pneumonia and admitted for further management. She was started on IV fluids and antibiotics. She was initially requiring nasal cannula but continued to decline requiring heated high flow for an extended period of time. Her labs were monitored daily and antibiotics were adjusted as needed. Her chest x-ray continued to show bilateral opacities and edema. Chest CT was also done which showed chronic interstitial lung disease. COVID, RSV and flu were negative. Patient's weakness got worse and she was not able to eat much. Her renal function worsened and her WBC was trending up. She was slowly transition to nasal cannula but then declined quickly requiring BiPAP. Patient was DNR and did not want to be put on the ventilator. Patient was not able to be weaned off BiPAP. Family and patient agreeable to comfort care measures. Comfort care order set was applied and BiPAP was taken off. Patient was placed on nasal cannula. Patient on 01/28/2025. Vital Signs: Vital Signs (72 hours) 01/26/25 12:00 01/26/25 13:29 01/26/25 13:31 Temperature 98.2 F Pulse Rate 93 H Pulse Rate [Left Radial] 87 Respiratory Rate 17 Blood Pressure [Left Arm] 148/65 Blood Pressure [Right Arm] O2 Sat by Pulse Oximetry 95 98 Oxygen Delivery Method Nasal Cannula Nasal Cannula Oxygen Flow Rate 4 FIO2% 36 01/26/25 15:38 01/26/25 16:53 01/26/25 19:00 Temperature 97.5 F L Pulse Rate 96 H Pulse Rate [Left Radial] 100 H Respiratory Rate 28 H Blood Pressure [Left Arm] 137/67 Blood Pressure [Right Arm] O2 Sat by Pulse Oximetry 92 L 96 Oxygen Delivery Method Nasal Cannula Nasal Cannula Oxygen Flow Rate 4 FIO2% 01/26/25 19:29 01/26/25 19:29 01/26/25 20:00 Temperature 97.8 F Pulse Rate 101 H Pulse Rate [Left Radial] 97 H Respiratory Rate 25 H Blood Pressure [Left Arm] 141/65 Blood Pressure [Right Arm] O2 Sat by Pulse Oximetry 88 L 90 L Oxygen Delivery Method Nasal Cannula Nasal Cannula Oxygen Flow Rate 4 4 FIO2% 36 01/26/25 20:50 01/26/25 21:50 01/26/25 23:57 Temperature 98.0 F Pulse Rate Pulse Rate [Left Radial] 97 H Respiratory Rate 25 H 24 21 Blood Pressure [Left Arm] 140/62 Blood Pressure [Right Arm] O2 Sat by Pulse Oximetry 94 L Oxygen Delivery Method Nasal Cannula Oxygen Flow Rate 4 FIO2% 01/27/25 00:03 01/27/25 05:40 01/27/25 07:00 Temperature Pulse Rate Pulse Rate [Left Radial] Respiratory Rate Blood Pressure [Left Arm] Blood Pressure [Right Arm] O2 Sat by Pulse Oximetry Oxygen Delivery Method Nasal Cannula Nasal Cannula Nasal Cannula Oxygen Flow Rate 4 5 4 FIO2% 36 40 01/27/25 07:48 01/27/25 08:42 01/27/25 08:42 Temperature 97.8 F Pulse Rate 93 H Pulse Rate [Left Radial] 90 Respiratory Rate 32 H Blood Pressure [Left Arm] 128/92 Blood Pressure [Right Arm] O2 Sat by Pulse Oximetry 91 L 87 L Oxygen Delivery Method Nasal Cannula Nasal Cannula Oxygen Flow Rate 4 4 FIO2% 36 01/27/25 09:35 01/27/25 09:40 01/27/25 09:50 Temperature Pulse Rate Pulse Rate [Left Radial] Respiratory Rate Blood Pressure [Left Arm] Blood Pressure [Right Arm] O2 Sat by Pulse Oximetry Oxygen Delivery Method Nasal Cannula Oxy Mask Oxy Mask Oxygen Flow Rate 4 10 15 FIO2% 36 61 81 01/27/25 12:00 01/27/25 15:58 01/27/25 17:10 Temperature 97.8 F 97.8 F Pulse Rate Pulse Rate [Left Radial] 98 H 104 H Respiratory Rate 35 H 35 H 35 H Blood Pressure [Left Arm] 128/68 160/69 Blood Pressure [Right Arm] O2 Sat by Pulse Oximetry 100 93 L Oxygen Delivery Method Oxy Mask Oxy Mask Oxygen Flow Rate FIO2% 01/27/25 17:40 01/27/25 19:00 01/27/25 19:28 Temperature Pulse Rate Pulse Rate [Left Radial] Respiratory Rate 35 H Blood Pressure [Left Arm] Blood Pressure [Right Arm] O2 Sat by Pulse Oximetry Oxygen Delivery Method Oxy Mask Oxy Mask Oxygen Flow Rate 4 FIO2% 81 01/27/25 19:28 01/27/25 20:00 01/27/25 22:14 Temperature 97.4 F L Pulse Rate 99 H Pulse Rate [Left Radial] 104 H Respiratory Rate 31 H 25 H Blood Pressure [Left Arm] 146/65 Blood Pressure [Right Arm] O2 Sat by Pulse Oximetry 96 96 Oxygen Delivery Method Oxy Mask Oxygen Flow Rate FIO2% 01/27/25 22:44 01/28/25 00:00 01/28/25 00:17 Temperature 98.1 F Pulse Rate 90 Pulse Rate [Left Radial] 97 H Respiratory Rate 25 H 19 Blood Pressure [Left Arm] 140/65 Blood Pressure [Right Arm] O2 Sat by Pulse Oximetry 95 92 L Oxygen Delivery Method Oxy Mask Oxygen Flow Rate FIO2% 01/28/25 04:00 01/28/25 04:02 01/28/25 04:15 Temperature Pulse Rate 97 H Pulse Rate [Left Radial] 96 H Respiratory Rate 39 H Blood Pressure [Left Arm] 175/79 Blood Pressure [Right Arm] 162/68 O2 Sat by Pulse Oximetry 96 88 L Oxygen Delivery Method Oxy Mask Oxygen Flow Rate FIO2% 01/28/25 04:30 01/28/25 04:30 01/28/25 04:30 Temperature Pulse Rate Pulse Rate [Left Radial] Respiratory Rate 35 H Blood Pressure [Left Arm] Blood Pressure [Right Arm] O2 Sat by Pulse Oximetry Oxygen Delivery Method Bi-pap Oxygen Flow Rate FIO2% 100 100 01/28/25 05:00 01/28/25 07:00 01/28/25 08:00 Temperature 97.2 F L Pulse Rate Pulse Rate [Left Radial] 102 H Respiratory Rate 43 H 39 H Blood Pressure [Left Arm] 150/88 Blood Pressure [Right Arm] O2 Sat by Pulse Oximetry 99 Oxygen Delivery Method Bi-pap Bi-pap Oxygen Flow Rate FIO2% 01/28/25 08:17 01/28/25 08:17 01/28/25 08:43 Temperature Pulse Rate Pulse Rate [Left Radial] Respiratory Rate 39 H Blood Pressure [Left Arm] Blood Pressure [Right Arm] O2 Sat by Pulse Oximetry Oxygen Delivery Method Bi-pap Oxygen Flow Rate FIO2% 100 100 01/28/25 09:13 01/28/25 11:01 01/28/25 12:00 Temperature 98.1 F Pulse Rate Pulse Rate [Left Radial] 97 H Respiratory Rate 39 H 33 H 18 Blood Pressure [Left Arm] 104/67 Blood Pressure [Right Arm] O2 Sat by Pulse Oximetry 96 Oxygen Delivery Method Bi-pap Oxygen Flow Rate FIO2% Labs: Laboratory Last Values WBC 30.0 X10^3/uL (3.6-10.0) H D 01/28/25 08:03 RBC 4.75 X10^6/uL (3.5-5.4) 01/28/25 08:03 Hgb 12.1 g/dL (12.0-16.0) 01/28/25 08:03 Hct 38.0 % (36.0-47.0) 01/28/25 08:03 MCV 80.0 fL (80.0-100.0) 01/28/25 08:03 MCH 25.5 pg (27.0-34.0) L 01/28/25 08:03 MCHC 31.8 g/dL (33.0-35.0) L 01/28/25 08:03 RDW 18.2 % (11.6-16.5) H 01/28/25 08:03 Plt Count 356 X10^3/uL (150.0-450.0) 01/28/25 08:03 Plt Count Comment Adequate (ADEQUATE) 01/28/25 08:03 MPV 7.9 fL (7.4-11.0) 01/28/25 08:03 Neut % (Auto) 93.2 % (42.0-75.0) H 01/28/25 08:03 Lymph % (Auto) 1.9 % (21.0-51.0) L 01/28/25 08:03 [place] % (Auto) 4.8 % (0.0-13.0) 01/28/25 08:03 Eos % (Auto) 0.0 % (0.9-2.9) L 01/28/25 08:03 Baso % (Auto) 0.1 % (0.2-1.0) L 01/28/25 08:03 Neut # (Auto) 27.9 x10^3/uL (2.2-4.8) H 01/28/25 08:03 Lymph # (Auto) 0.6 X10^3/uL (1.3-2.9) L 01/28/25 08:03 [place] # (Auto) 1.4 x10^3/uL (0.3-0.8) H 01/28/25 08:03 Eos # (Auto) 0.0 x10^3/uL (0.0-0.2) 01/28/25 08:03 Baso # (Auto) 0.0 X10^3/uL (0.0-0.1) 01/28/25 08:03 Absolute Nucleated RBC 0.5 /100WBC 01/28/25 08:03 Total Counted 100 01/28/25 08:03 Neutrophils % (Manual) 94 % (39-76) H 01/28/25 08:03 Band Neutrophils % 3 % (0-10) 01/26/25 05:19 Lymphocytes % (Manual) 2 % (13-43) L 01/28/25 08:03 Monocytes % (Manual) 4 % (4-9) 01/28/25 08:03 Eosinophils % (Manual) 1 % (0-6) 01/27/25 04:50 Plt Morphology Comment Normal (NORMAL) 01/28/25 08:03 RBC Morphology Abnormal (NORMAL) A 01/28/25 08:03 Hypochromasia Slight A 01/28/25 08:03 Poikilocytosis Slight A 01/27/25 04:50 Anisocytosis Slight A 01/28/25 08:03 Microcytosis Slight A 01/27/25 04:50 Ovalocytes Slight A 01/27/25 04:50 D-Dimer 2.38 ug/ml (0.0-0.57) H 01/15/25 13:35 Sample Site R rad 01/25/25 06:09 ABG pH 7.420 (7.35-7.45) 01/25/25 06:09 ABG pCO2 37.0 mmHg (35.0-45.0) 01/25/25 06:09 ABG pO2 57.0 mmHg (80.0-100.0) L 01/25/25 06:09 ABG HCO3 24.0 mmol/L (22-26) 01/25/25 06:09 ABG O2 Saturation 90.0 % (90-100) 01/25/25 06:09 ABG Base Excess -0.2 mmol/L (-2.0-2.0) 01/25/25 06:09 Smooth Test Pos 01/25/25 06:09 A-a Gradient 153.0 mmHg 01/25/25 06:09 FiO2 36.0 01/25/25 06:09 Blood Gas Comments 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 01/25/25 06:09 Sodium 141 mmol/L (136-145) 01/28/25 08:03 Corrected Sodium 142 mmol/L (136-145) 01/28/25 08:03 Potassium 3.9 mmol/L (3.5-5.1) 01/28/25 08:03 Chloride 106 mmol/L (98-107) 01/28/25 08:03 Carbon Dioxide 19.4 mmol/L (21-32) L 01/28/25 08:03 BUN 105 mg/dL (7-18) H 01/28/25 08:03 Creatinine 1.75 mg/dL (0.55-1.02) H 01/28/25 08:03 Est GFR (MDRD) Af Amer 35 (>60) L 01/28/25 08:03 Est GFR (MDRD) Non-Af 29 (>60) L 01/28/25 08:03 Glucose 127 mg/dL (65-99) H 01/28/25 08:03 POC Glucose (mg/dL) 152 mg/dL (65-99) H 01/28/25 03:13 Lactic Acid 0.9 mmol/L (0.4-2.0) 01/15/25 16:00 Calcium 9.4 mg/dL (8.5-10.1) 01/28/25 08:03 Corrected Calcium 10.8 mg/dL (8.5-10.1) H 01/28/25 08:03 Phosphorus 4.8 mg/dL (2.6-4.7) H 01/27/25 12:18 Magnesium 1.7 mg/dL (2.0-2.9) L 01/27/25 12:18 Total Bilirubin 0.70 mg/dL (0.2-1.0) 01/28/25 08:03 AST 65 Units/L (15-37) H 01/28/25 08:03 ALT 36 Units/L (12-78) 01/28/25 08:03 Alkaline Phosphatase 174 Units/L (46-116) H 01/28/25 08:03 Creatine Kinase 27 Units/L (26-192) 01/15/25 13:35 Troponin I High Sens 10.1 ng/L (4.0-60.0) 01/15/25 13:35 B-Natriuretic Peptide 38.0 pg/mL (0-79) 01/24/25 05:14 Total Protein 5.4 g/dL (6.4-8.2) L 01/28/25 08:03 Albumin 2.2 g/dL (3.4-5.0) L 01/28/25 08:03 Globulin 3.2 g/dL (2.5-4.5) 01/28/25 08:03 Albumin/Globulin Ratio 0.7 Ratio (1.1-2.1) L 01/28/25 08:03 Prealbumin 21.5 mg/dL (18-35.7) 01/28/25 08:03 Triglycerides 87 mg/dL (0-150) 01/27/25 12:18 Vitamin D 25-Hydroxy 70 ng/mL (30-100) 01/23/25 05:09 Specimen Type Catherized urine 01/26/25 09:38 Urine Color Yellow (YELLOW) 01/26/25 09:38 Urine Appearance Slightly hazy (CLEAR) 01/26/25 09:38 Urine pH 5.0 (5.0 - 8.0) 01/26/25 09:38 Ur Specific [place] 1.025 (1.000-1.030) 01/26/25 09:38 Urine Protein 2+ (NEGATIVE) 01/26/25 09:38 Urine Glucose (UA) 2+ (NEGATIVE) 01/26/25 09:38 Urine Ketones Negative (NEGATIVE) 01/26/25 09:38 Urine Blood 4+ (NEGATIVE) 01/26/25 09:38 Urine Nitrite Negative (NEGATIVE) 01/26/25 09:38 Urine Bilirubin Negative (NEGATIVE) 01/26/25 09:38 Urine Urobilinogen Normal (NORMAL) 01/26/25 09:38 Ur Leukocyte Esterase Negative (NEGATIVE) 01/26/25 09:38 Urine RBC 30-50 /HPF (0-3) A 01/26/25 09:38 Urine WBC 0-2 /HPF (0-5) 01/26/25 09:38 Ur Squamous Epith Cells Rare /HPF (NEGATIVE) 01/26/25 09:38 Urine Bacteria Negative /HPF (NEGATIVE) 01/26/25 09:38 Urine Yeast Numerous /HPF (NEGATIVE) 01/26/25 09:38 Ur Culture Indicated? Yes/culture set up 01/26/25 09:38 Stool for White Cells Negative (NEGATIVE) 01/22/25 10:50 Stl C. diff Tox B Gene Negative (NEGATIVE) 01/22/25 10:50 Stl C. diff [id number] Presumptive negative (NEGATIVE) 01/22/25 10:50 SARS-CoV-2 (PCR) Negative (NEGATIVE) 01/15/25 13:46 Cryptosporid parvum Ag Negative (NEGATIVE) 01/22/25 10:50 Giardia lamblia Ag Negative (NEGATIVE) 01/22/25 10:50 Influenza Type A (PCR) Negative (NEGATIVE) 01/15/25 13:46 Influenza Type B (PCR) Negative (NEGATIVE) 01/15/25 13:46 RSV (PCR) Negative (NEGATIVE) 01/15/25 13:46 Resp Viral Panel (PCR) See scanned report 01/15/25 20:25 Reason For Visit: PNEUMONIA, HYPOXIA Discharge Diagnosis All Active Problems (Updated 01/25/25 @ 10:11 by Nina Brewer MD) Pulmonary edema (Acute) Insomnia (Acute) Interstitial lung disease (Chronic) Acute respiratory failure (Acute) Type 2 diabetes mellitus (Chronic) Generalized weakness (Acute) Hypercalcemia (Chronic) HTN (hypertension) (Chronic) Hypoxia (Acute) Pneumonia (Acute) Fall at home (Acute) C2 cervical fracture (Acute) Plan of Treatment: Continue with present treatment and follow up plan. Pt is to keep follow up appointment as instructed and take medications as ordered. Discharge Medications Discharge Medications: Sulfa (Sulfonamide Antibiotics) (SULFA) Adverse Reaction (Verified 01/15/25 13:38) CONTINUE taking the following medications aspirin 81 mg capsule 81 mg PO QDAY 01/15/25 [History] cholecalciferol (vitamin D3) 125 mcg (5,000 unit) tablet (Vitamin D3) 125 mcg PO QDAY 01/15/25 [History] insulin degludec 100 unit/mL subcutaneous solution (Tresiba U-100 Insulin) 10 unit subcut QDAY 01/15/25 [History] multivitamin 1 tab PO QAM 01/15/25 [History] omeprazole 20 mg capsule,delayed release 20 mg PO QDAY 01/15/25 [History] rivaroxaban 2.5 mg tablet 2.5 mg PO BID 01/15/25 [History] tramadol 50 mg tablet 25 - 50 mg PO Q8-10H PRN 01/15/25 [History] Discharge Disposition Discharge Condition: Discharge Plan Discharge Plan Hospital Course: Patient was a 89-year-old female with a past medical history of type 2 diabetes, GERD, hypertension and hyperlipidemia presented with generalized weakness and hypoxia. She was found to have bilateral pneumonia and admitted for further management. She was started on IV fluids and antibiotics. She was initially requiring nasal cannula but continued to decline requiring heated high flow for an extended period of time. Her labs were monitored daily and antibiotics were adjusted as needed. Her chest x-ray continued to show bilateral opacities and edema. Chest CT was also done which showed chronic interstitial lung disease. COVID, RSV and flu were negative. Patient's weakness got worse and she was not able to eat much. Her renal function worsened and her WBC was trending up. She was slowly transition to nasal cannula but then declined quickly requiring BiPAP. Patient was DNR and did not want to be put on the ventilator. Patient was not able to be weaned off BiPAP. Family and patient agreeable to comfort care measures. Comfort care order set was applied and BiPAP was taken off. Patient was placed on nasal cannula. Patient on 01/28/2025. Patient Disposition: 20 Health Concerns: Post Hospitalization: new medications and changes needed to prevent readmission or further decline. Pt educated and given instructions on all concerns. Plan of Treatment: Continue with present treatment and follow up plan. Pt is to keep follow up appointment as instructed and take medications as ordered. Prescriptions: No Action triamterene-hydrochlorothiazid 1 CAP capsule 1 cap PO DAILY levothyroxine 88 mcg tablet 88 mcg PO QDAY rosuvastatin 10 mg Tablet 10 mg PO QDAY dapagliflozin propanediol [Farxiga] 10 mg tablet 10 mg PO QDAY tramadol 50 mg tablet 25 - 50 mg PO Q8-10H PRN rivaroxaban 2.5 mg tablet 2.5 mg PO BID insulin degludec [Tresiba U-100 Insulin] 100 unit/mL Solution 10 unit SUBCUT QDAY multivitamin Tablet 1 tab PO QAM omeprazole 20 mg Capsule,Delayed Release(Dr/Ec) 20 mg PO QDAY cholecalciferol (vitamin D3) [Vitamin D3] 125 mcg (5,000 unit) Tablet 125 mcg PO QDAY aspirin 81 mg Capsule 81 mg PO QDAY Orders to Discharge Patient Discharge Orders: Release body (Routine); Ordered 01/28/25 Ordered By: Nina Brewer Follow ups/Referrals Follow ups/Referrals: ADELE GARCIA [Primary Care Provider, Unknown] - 3 days Instructions Stand Alone Forms: Excuse From Work or School, Find Help Web Site, Post Hospital Follow Up Care Print Language: V[place]
== END 2025-01-28 12:45 | disposition expired | DRG 193 ==
LOC: ER 13:21 → MED/SURG 13:21
PROVIDERS: ADMIT Internal Medicine; ATTEND Internal Medicine
DX: I46.8 Cardiac arrest due to other underlying condition; L97.528 Non-pressure chronic ulcer of other part of left foot with other specified severity; R79.1 Abnormal coagulation profile; R94.31 Abnormal electrocardiogram [ECG] [EKG]; I10 Essential (primary) hypertension; Z03.818 Encounter for observation for suspected exposure to other biological agents ruled out; E11.65 Type 2 diabetes mellitus with hyperglycemia; E03.8 Other specified hypothyroidism; F41.8 Other specified anxiety disorders; E83.42 Hypomagnesemia; B37.7 Candidal sepsis; Z79.4 Long term (current) use of insulin; J18.8 Other pneumonia, unspecified organism; E83.52 Hypercalcemia; R53.1 Weakness; J96.01 Acute respiratory failure with hypoxia; E11.621 Type 2 diabetes mellitus with foot ulcer; E78.5 Hyperlipidemia, unspecified; G47.00 Insomnia, unspecified; Z98.890 Other specified postprocedural states; Z66 Do not resuscitate; E11.59 Type 2 diabetes mellitus with other circulatory complications; J81.1 Chronic pulmonary edema